=== PATIENT | male | born 1975 | race African-American/Black ===

== ENCOUNTER 2016-06-02 13:09 | Inpatient (IN) | payer OTHER ==
[2016-06-02 21:43] VITALS: BMI 19.1
--- NOTE | 2016-06-02 22:04 | HP ---
CIWA Score - CIWA Score Nausea/Vomitin-Mild Nausea/No Vomiting Muscle Tremors: 3 Anxiety: 3 Agitation: 4-Moderately Restless Paroxysmal Sweats: 1-Minimal Palms Moist Orientation: 3-Disoriented Date>2 days Tacttile Disturbances: 0-None Auditory Disturbances: 0-None Visual Disturbances: 0-None Headache: 0-None Present CIWA-Ar Total Score: 15 Admission ROS S - HPI Chief Complaint: WITHDRAWAL SX Allergies/Adverse Reactions: Allergies Allergy/AdvReac Type Severity Reaction Status Date / Time phenytoin sodium Allergy Intermediate Rash Verified 11/16/15 22:37 [From Dilantin] phenytoin sodium extended Allergy Intermediate Rash Verified 11/16/15 22:37 [From Dilantin] History of Present Illness: 40 YEARS OLD MALE WITH LONG HISTORY OF ALCOHOL NICOTINE DEPENDENCE HAS SEIZURE AND DEPRESSION IS ADMITTED TO DETOX Exam Limitations: No Limitations - Ebola screening Have you traveled outside of the country in the last 21 days: No Have you had contact with anyone from an Ebola affected area: No Have you been sick,other than usual withdrawal symptoms: No Do you have a fever: No - Review of Systems Constitutional: Chills, Loss of Appetite, Changes in sleep, Unintentional Wgt. Loss, Unexplained wgt Loss EENT: reports: No Symptoms Reported Respiratory: reports: No Symptoms reported Cardiac: reports: No Symptoms Reported GI: reports: Nausea, Poor Appetite, Poor Fluid Intake, Abdominal cramping : reports: No Symptoms Reported Musculoskeletal: reports: Joint Pain (LEFT SHOULDER) Integumentary: reports: No Symptoms Reported Neuro: reports: Seizure (2016), Tremors Endocrine: reports: No Symptoms Reported Hematology: reports: No Symptoms Reported Psychiatric: reports: Judgement Intact, Depressed Other Systems: Reviewed and Negative Patient History - Patient Medical History Hx Anemia: No Hx Asthma: No Hx Chronic Obstructive Pulmonary Disease (COPD): No Hx Cancer: No Hx Cardiac Disorders: No Hx Congestive Heart Failure: No Hx Hypertension: No Hx Hypercholesterolemia: No Hx Pacemaker: No HX Cerebrovascular Accident: No (craniotomy and secondary neuropathy that resolved on the left side) Hx Seizures: Yes (10/2015) Hx Dementia: No Hx Diabetes: No Hx Gastrointestinal Disorders: No Hx Liver Disease: No Hx Genitourinary Disorders: No Hx Sexually Transmitted Disorders: No Hx Renal Disease (ESRD): No Hx Thyroid Disease: No Hx Human Immunodeficiency Virus (HIV): No (NEGATIVE HX LAST 08/31) Hx Hepatitis C: No Hx Depression: Yes Hx Suicide Attempt: No Hx Bipolar Disorder: No Hx Schizophrenia: No - Patient Surgical History Past Surgical History: Yes Hx Neurologic Surgery: Yes (Brain injury sx in 2005 head trauma from aneurism) Hx Cataract Extraction: No Hx Cardiac Surgery: No Hx Lung Surgery: No Hx Breast Surgery: No Hx Breast Biopsy: No Hx Abdominal Surgery: No Hx Appendectomy: No Hx Cholecystectomy: No Hx Genitourinary Surgery: No Hx Orthopedic Surgery: No Anesthesia Reaction: No - PPD History Previous Implant?: Yes Documented Results: Positive w/o proof Implanted On Prior [facility] Admission?: Yes Date: 02/07/15 Results: CXR(-)02/08/15 PPD to be Administered?: No - Smoking Cessation Smoking history: Current every day smoker Have you smoked in the past 12 months: Yes Aproximately how many cigarettes per day: 20 Cigars Per Day: 0 Hx Chewing Tobacco Use: No Initiated information on smoking cessation: Yes 'Breaking Loose' booklet given: 06/02/16 - Substance & Tx. History Hx Alcohol Use: Yes Hx Substance Use: Yes Substance Use Type: Alcohol, Marijuana Hx Substance Use Treatment: Yes - Substances Abused Alcohol Route: Oral Frequency: Daily Amount used: 2 OF 6 PACK BEER Age of first use: 17 Date of Last Use: 06/02/16 Family Disease History - Family Disease History Family Disease History: Other: Father (UNKNOWN), Brother (ONLY CHILD) Admission Physical Exam BHS - Vital Signs Vital Signs: Vital Signs - 24 hr 06/02/16 21:39 Temperature 90.6 F L Pulse Rate 99 H Respiratory 18 Rate Blood Pressure 120/85 - Physical General Appearance: Yes: Appropriately Dressed, Mild Distress, Alcohol on Breath , Thin, Tremorous, Irritable, Sweating, Anxious HEENTM: Yes: Hearing grossly Normal, Normal ENT Inspection, Normal Voice, Other (2006 CRANIOTOMY) Respiratory: Yes: Chest Non-Tender, Lungs Clear, Normal Breath Sounds, No Respiratory Distress, No Accessory Muscle Use Neck: Yes: Supple, Trachea in good position Breast: Yes: Breasts Symetrical Cardiology: Yes: Regular Rhythm, S1, S2, Tachycardia Abdominal: Yes: Non Tender, Soft Genitourinary: Yes: Within Normal Limits Back: Yes: Normal Inspection Musculoskeletal: Yes: full range of Motion, Gait Steady, Muscle Pain (LEFT SHOULDER) Extremities: Yes: Normal Range of Motion, Non-Tender, Tremors Neurological: Yes: Alert, Motor Strength 5/5, Normal Response, Depressed Affect Integumentary: Yes: Warm Lymphatic: Yes: Within Normal Limits - Diagnostic (1) Alcohol dependence with uncomplicated withdrawal Current Visit: Yes Status: Chronic (2) Cannabis dependence, uncomplicated Current Visit: Yes Status: Chronic (3) Major depressive disorder, recurrent, moderate Current Visit: Yes Status: Suspected (4) Nicotine dependence Current Visit: Yes Status: Chronic Qualifiers: Nicotine product type: cigarettes Substance use status: in withdrawal Qualified Code(s): F17.213 - Nicotine dependence, cigarettes, with withdrawal (5) Seizure disorder Current Visit: Yes Status: Chronic Comment: 2006 DUE TO HEAD TRAUMA (6) Weight loss Current Visit: Yes Status: Acute Cleared for Admission [facility] - Detox or Rehab [facility] Level of Care: Medically Managed Detox Regimen/Protocol: Librium [facility] Breath Alcohol Content Breath Alcohol Content: 0.211 Urine Drug Screen - Results Drug Screen Negative: No Urine Drug Screen Results: THC-Marijuana
[2016-06-02] MEDS ORDERED: ACETAMINOPHEN 325 MG TABLET (FP) PO PRN (22:12)
[2016-06-02] MEDS ORDERED: IBUPROFEN 400 MG TABLET (FP) PO PRN (22:12)
[2016-06-02] MEDS ORDERED: MAG HYDROX/AL HYDROX/SIMETH 30 ML UNIT-DOSE CUP PO PRN (22:12)
[2016-06-02] MEDS ORDERED: guaiFENesin/D-METHORPHAN HB 10 ML UNIT-DOSE CUPS PO PRN (22:12)
[2016-06-02] MEDS ORDERED: chlordiazePOXIDE HCL 25 MG CAPSULE PO PRN (22:12)
[2016-06-02] MEDS ORDERED: NICOTINE POLACRILEX 4 MG GUM BC PRN (22:12)
[2016-06-02] MEDS ORDERED: MENTHOL/PHENOL 1 EACH UD MM PRN (22:12)
[2016-06-02] MEDS ORDERED: MAGNESIUM HYDROX 2400MG/30ML ORAL SUSPENSION 30 ML CUP PO PRN (22:12)
[2016-06-02] MEDS ORDERED: P-EPHED 60MG/TRIPROLIDI 2.5MG TABLET PO PRN (22:12)
[2016-06-02] MEDS ORDERED: diphenhydrAMINE HCL 50 MG CAPSULE PO PRN (22:12)
[2016-06-02] MEDS ORDERED: NICOTINE 21 MG/24 HOURS TOPICAL PATCH TD PRN (22:12)
[2016-06-02] MEDS ORDERED: LOPERAMIDE HCL 2 MG CAPSULE PO PRN (22:12)
[2016-06-02] MEDS ORDERED: MAGNESIUM CITRATE 300 ML BOTTLE PO PRN (22:12)
[2016-06-02] MEDS ORDERED: hydrOXYzine PAMOATE 50 MG CAPSULE (FP) PO PRN (22:12)
[2016-06-03] MEDS: chlordiazePOXIDE HCL 25 MG CAPSULE PO SCH ×3 (01:06→10:09)
[2016-06-03] MEDS: levETIRAcetam 500 MG TABLET (FP) PO SCH ×2 (01:10→10:09)
[2016-06-03 03:01] LABS: URINE APPEARANCE CLEAR; URINE BILIRUBIN NEGATIVE (NEGATIVE); URINE COLOR COLORLESS; URINE GLUCOSE (UA) NEGATIVE (NEGATIVE); URINE KETONE NEGATIVE (NEGATIVE); URINE LEUK ESTERASE NEGATIVE (NEGATIVE); URINE NITRITE NEGATIVE (NEGATIVE); URINE PROTEIN NEGATIVE (NEGATIVE); URINE UROBILINOGEN NEGATIVE E.U./dl (0.2-1.0)
[2016-06-03 03:08] LABS: URINE BLOOD 1+ (NEGATIVE)
[2016-06-03 09:53] LABS: MCH 34.6 pg (25.7-33.7); MCHC 34.3 g/dl (32.0-35.9); MEAN CELL VOLUME 100.8 fl (80-96); MEAN PLT VOLUME 7.7 fl (7.5-11.1); PLATELET COUNT 207 K/MM3 (134-434); RDW 13.3 % (11.9-15.9); WHITE BLOOD COUNT 4.9 K/mm3 (4.0-10.0)
[2016-06-03] MEDS ORDERED: PRENATAL VITAMINS W/ FOLIC ACID TABLET (FP) PO SCH (10:00)
[2016-06-03 10:06] LABS: ALBUMIN 3.7 g/dl (3.4-5.0); ALK PHOS 36 U/L (45-117); ANION GAP 7 (8-16); BILIRUBIN,TOTAL 0.9 mg/dL (0.2-1.0); CALCIUM 8.2 mg/dL (8.5-10.1); CO2 30 mmol/L (21-32); COCKROFT - GAULT 100.67; CREATININE 0.9 mg/dL (0.7-1.3); GLUCOSE,RANDOM 85 mg/dL (74-106); SGOT/AST 27 U/L (15-37); SGPT/ALT 25 U/L (12-78); TOT PROT 6.7 g/dl (6.4-8.2)
--- NOTE | 2016-06-03 10:36 | CONSULT ---
[facility] Psychiatric Consult - Data Date of interview: 06/03/16 Admission source: [facility] Identifying data: Readmission to [facility] for this 40 y/o AA male seeking detox treatment for alcohol,and cannabis dependence.Patient is single,without children,unemployed/disabled and supported on SSI benefits. Substance Abuse History: - Smoking Cessation. Smoking history: Current every day smoker. Have you smoked in the past 12 months: Yes. Aproximately how many cigarettes per day: 20. Cigars Per Day: 0. Hx Chewing Tobacco Use: No. Initiated information on smoking cessation: Yes. 'Breaking Loose' booklet given : 06/02/16. - Substance & Tx. History. Hx Alcohol Use: Yes. Hx Substance Use : Yes. Substance Use Type: Alcohol, Marijuana. Hx Substance Use Treatment: Yes. - Substances Abused. Alcohol. Route: Oral. Frequency: Daily. Amount used: 2 OF 6 PACK BEER. Age of first use: 17. Date of Last Use: . Confirmed by patient. Medical History: Seizure disorder (post-traumatic),neurosurgery in 2005 for brain aneurysm (craniotomy) and residual neuropathy. Psychiatric History: Psychiatric hospitalization at [facility] three years ago.Exact diagnosis not recalled by patient.Past [facility] records indicate MDD and a recent admission to [facility].Mr Deluna denies being on psychotropic medications at this time.No reported contact with psychiatric [facility]PD care providers.Patient denies history of suicide attempts. Physical/Sexual Abuse/Trauma History: No history. Additional Comment: Urine Drug Screen Results: THC-Marijuana.Noted. Mental Status Exam - Mental Status Exam Alert and Oriented to: Time, Place, Person Cognitive Function: Good Patient Appearance: Well Groomed (gross deformation of left side of skull) Mood: Hopeful (calm) Affect: Appropriate, Euthymic Patient Behavior: Fatigued, Appropriate, Cooperative Speech Pattern: Clear Voice Loudness: Normal Thought Process: Goal Oriented Thought Disorder: Not Present Hallucinations: Denies Suicidal Ideation: Denies Homicidal Ideation: Denies Insight/Judgement: Poor Sleep: Well Appetite: Good Muscle strength/Tone: Normal Gait/Station: Normal Psychiatric Findings - Problem List ([place] 1, 2,3) (1) Alcohol dependence with uncomplicated withdrawal Current Visit: Yes Status: Acute (2) Cannabis dependence, uncomplicated Current Visit: Yes Status: Acute (3) Nicotine dependence Current Visit: Yes Status: Acute Qualifiers: Nicotine product type: cigarettes Substance use status: in withdrawal Qualified Code(s): F17.213 - Nicotine dependence, cigarettes, with withdrawal (4) Drug-induced mood disorder Current Visit: Yes Status: Acute (5) Seizure disorder Current Visit: Yes Status: Chronic Comment: 2006 DUE TO HEAD TRAUMA - Initial Treatment Plan Initial Treatment Plan: Psychoeducation.Detoxification.Observation.Seizures precautions.
--- NOTE | 2016-06-03 11:01 | PN ---
S CIWA - CIWA Score Nausea/Vomitin Muscle Tremors: 2 Anxiety: 2 Agitation: 1-Slight > Activity Paroxysmal Sweats: 2 Orientation: 0-Oriented Tacttile Disturbances: 1-Very Mild Itch/Numbness Auditory Disturbances: 0-None Visual Disturbances: 0-None Headache: 0-None Present CIWA-Ar Total Score: 10 BHS Progress Note (SOAP) Subjective: feeling better, interrupted sleep, Objective: 06/03/16 11:00 Vital Signs Temperature 98.1 F 06/03/16 06:18 Pulse Rate 91 H 06/03/16 10:00 Respiratory Rate 18 06/03/16 10:00 Blood Pressure 123/81 06/03/16 10:00 O2 Sat by Pulse Oximetry (%) Laboratory Tests 06/02/16 06/03/16 06/03/16 23:12 07:00 07:00 WBC 4.9 RBC 3.93 L Hgb 13.6 Hct 39.6 MCV 100.8 H MCHC 34.3 RDW 13.3 Plt Count 207 D MPV 7.7 Sodium 144 Potassium 4.1 Chloride 107 Carbon Dioxide 30 Anion Gap 7 L BUN 8 Creatinine 0.9 Creat Clearance w eGFR > 60 Random Glucose 85 Calcium 8.2 L Total Bilirubin 0.9 D AST 27 ALT 25 Alkaline Phosphatase 36 L D Total Protein 6.7 Albumin 3.7 Urine Color Colorless Urine Appearance Clear Urine pH 6.0 Ur Specific [place] 1.002 Urine Protein Negative Urine Glucose (UA) Negative Urine Ketones Negative Urine Blood 1+ H Urine Nitrite Negative Urine Bilirubin Negative Urine Urobilinogen Negative Ur Leukocyte Esterase Negative 06/03/16 11:12 pt aox3 lying in bed in nad 06/03/16 16:01 06/03/16 16:02 Assessment: 06/03/16 11:00 withdrawal sx's 06/03/16 16:01 Plan: cont. detox increase fluids
--- NOTE | 2016-06-03 13:08 | EKG ---
Test Reason : Blood Pressure : / mmHG Vent. Rate : 091 BPM Atrial Rate : 091 BPM P-R Int : 148 ms QRS Dur : 096 ms QT Int : 336 ms P-R-T Axes : 080 029 057 degrees QTc Int : 413 ms NORMAL SINUS RHYTHM NORMAL ECG NO PREVIOUS ECGS AVAILABLE Confirmed by LARISSA MILLER, BRODY ([id number]) on 06/03/2016 1:08:08 PM Referred By: Confirmed By:BRODY DIAS MD
[2016-06-03 14:01] VITALS: BP 125/76; PULSE 90; TEMP 97.3
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
[2016-06-03] MEDS ORDERED: THIAMINE HCL 100 MG TABLET (FP) PO SCH (22:00)
[2016-06-03] MEDS ORDERED: chlordiazePOXIDE HCL 25 MG CAPSULE PO SCH (23:00)
[2016-06-04] MEDS ORDERED: chlordiazePOXIDE 5 MG CAPSULE PO SCH (23:00)
[2016-06-05] MEDS ORDERED: chlordiazePOXIDE HCL 10 MG CAPSULE PO SCH (23:00)
== END 2016-06-03 18:00 | disposition left against medical advice (07) | DRG 770 ==
LOC: YASAS 13:09 → Y6N 22:49
PROVIDERS: ADMIT Internal Medicine Addiction Medicine; ATTEND Internal Medicine Addiction Medicine
PROC: HZ2ZZZZ Detoxification Services for Substance Abuse Treatment (ICD-10-PCS; principal; 2016-06-02)
DX: F10.230 Alcohol dependence with withdrawal, uncomplicated (principal); F12.20 Cannabis dependence, uncomplicated; F17.210 Nicotine dependence, cigarettes, uncomplicated; F33.1 Major depressive disorder, recurrent, moderate; F19.24 Other psychoactive substance dependence with psychoactive substance-induced mood disorder; G40.909 Epilepsy, unspecified, not intractable, without status epilepticus; R00.0 Tachycardia, unspecified; Z87.898 Personal history of other specified conditions
CPT/HCPCS: 36415; 71020-TC; 80053; 81003; 81015; 85027; 86593; 93005; 93010

== ENCOUNTER 2016-07-22 12:09 | Inpatient (IN) | payer OTHER ==
[2016-07-22 16:30] VITALS: BMI 19.0
--- NOTE | 2016-07-22 17:27 | HP ---
CIWA Score - CIWA Score Nausea/Vomitin-Mild Nausea/No Vomiting Muscle Tremors: 4-Moderate,w/Arms Extend Anxiety: 4-Mod. Anxious/Guarded Agitation: 4-Moderately Restless Paroxysmal Sweats: 1-Minimal Palms Moist Orientation: 0-Oriented Tacttile Disturbances: 0-None Auditory Disturbances: 0-None Visual Disturbances: 0-None Headache: 0-None Present CIWA-Ar Total Score: 14 Admission ROS S - HPI Chief Complaint: WITHDRAWAL SX Allergies/Adverse Reactions: Allergies Allergy/AdvReac Type Severity Reaction Status Date / Time phenytoin sodium Allergy Intermediate Rash Verified 11/16/15 22:37 [From Dilantin] phenytoin sodium extended Allergy Intermediate Rash Verified 11/16/15 22:37 [From Dilantin] History of Present Illness: 40 YEARS OLD MALE WITH LONG HISTORY OF ALCOHOL NICOTINE DEPENDENCE HAS POSITIVE PPD, SEIZURE DENIES MENTAL ILLNESS IS ADMITTED TO DETOX Exam Limitations: No Limitations - Ebola screening Have you traveled outside of the country in the last 21 days: No Have you had contact with anyone from an Ebola affected area: No Have you been sick,other than usual withdrawal symptoms: No Do you have a fever: No - Review of Systems Constitutional: Chills, Loss of Appetite, Changes in sleep, Unintentional Wgt. Loss, Unexplained wgt Loss EENT: reports: No Symptoms Reported Respiratory: reports: No Symptoms reported Cardiac: reports: No Symptoms Reported GI: reports: Nausea, Poor Appetite, Poor Fluid Intake, Abdominal cramping : reports: No Symptoms Reported Musculoskeletal: reports: No Symptoms Reported Integumentary: reports: No Symptoms Reported Neuro: reports: Seizure (2006 HEAD TRAUMA), Tremors Endocrine: reports: No Symptoms Reported Hematology: reports: No Symptoms Reported Psychiatric: reports: Judgement Intact, Orientated x3, Depressed Other Systems: Reviewed and Negative Patient History - Patient Medical History Hx Anemia: No Hx Asthma: No Hx Chronic Obstructive Pulmonary Disease (COPD): No Hx Cancer: No Hx Cardiac Disorders: No Hx Congestive Heart Failure: No Hx Hypertension: No Hx Hypercholesterolemia: No Hx Pacemaker: No HX Cerebrovascular Accident: No (craniotomy and secondary neuropathy that resolved on the left side) Hx Seizures: Yes (10/2015) Hx Dementia: No Hx Diabetes: No Hx Gastrointestinal Disorders: No Hx Liver Disease: No Hx Genitourinary Disorders: No Hx Sexually Transmitted Disorders: No Hx Renal Disease (ESRD): No Hx Thyroid Disease: No Hx Human Immunodeficiency Virus (HIV): No (NEGATIVE HX LAST 08/31) Hx Hepatitis C: No Hx Depression: Yes Hx Suicide Attempt: No Hx Bipolar Disorder: No Hx Schizophrenia: No - Patient Surgical History Past Surgical History: Yes Hx Neurologic Surgery: Yes (Brain 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) Hx Cataract Extraction: No Hx Cardiac Surgery: No Hx Lung Surgery: No Hx Breast Surgery: No Hx Breast Biopsy: No Hx Abdominal Surgery: No Hx Appendectomy: No Hx Cholecystectomy: No Hx Genitourinary Surgery: No Hx Orthopedic Surgery: No Anesthesia Reaction: No - PPD History Previous Implant?: Yes Documented Results: Positive w/o proof Implanted On Prior R Admission?: No Date: 02/07/15 Results: CXR(-)02/08/15 PPD to be Administered?: No - Smoking Cessation Smoking history: Current every day smoker Have you smoked in the past 12 months: Yes Aproximately how many cigarettes per day: 20 Cigars Per Day: 0 Hx Chewing Tobacco Use: No Initiated information on smoking cessation: Yes 'Breaking Loose' booklet given: 07/22/16 - Substance & Tx. History Hx Alcohol Use: Yes Hx Substance Use: Yes Substance Use Type: Alcohol, Marijuana Hx Substance Use Treatment: Yes - Substances Abused Alcohol Route: Oral Frequency: Daily Amount used: 40OZX5 BEER Age of first use: 17 Date of Last Use: 07/22/16 Family Disease History - Family Disease History Family Disease History: Diabetes: Mother, Other: Father (NO CONTACT) Other Family History: ONLY CHILD Admission Physical Exam S - Vital Signs Vital Signs: Vital Signs - 24 hr 07/22/16 16:28 Temperature 98 F Pulse Rate 91 H Respiratory 20 Rate Blood Pressure 106/71 - Physical General Appearance: Yes: Appropriately Dressed, Mild Distress, Alcohol on Breath , Tremorous, Irritable, Sweating, Anxious HEENTM: Yes: Hearing grossly Normal, Normal ENT Inspection, Normocephalic, Normal Voice Respiratory: Yes: Chest Non-Tender, Lungs Clear, Normal Breath Sounds, No Respiratory Distress, No Accessory Muscle Use Neck: Yes: Supple, Trachea in good position Breast: Yes: Breasts Symetrical Cardiology: Yes: Regular Rhythm, S1, S2, Tachycardia Abdominal: Yes: Non Tender, Soft Genitourinary: Yes: Within Normal Limits Back: Yes: Normal Inspection Musculoskeletal: Yes: full range of Motion, Gait Steady Extremities: Yes: Normal Inspection, Normal Range of Motion, Non-Tender, Tremors Neurological: Yes: Fully Oriented, Alert, Motor Strength 5/5, Normal Response, Depressed Affect Integumentary: Yes: Warm Lymphatic: Yes: Within Normal Limits - Diagnostic (1) Weight loss Current Visit: Yes Status: Acute (2) Alcohol dependence with uncomplicated withdrawal Current Visit: Yes Status: Acute (3) Nicotine dependence Current Visit: Yes Status: Acute Qualifiers: Nicotine product type: cigarettes Substance use status: in withdrawal Qualified Code(s): F17.213 - Nicotine dependence, cigarettes, with withdrawal (4) Seizure disorder Current Visit: Yes Status: Chronic Comment: 2006 DUE TO HEAD TRAUMA KEPPRA 1500 MG BID LAST EPISODE 07/07/16 (5) Positive PPD, treated Current Visit: Yes Status: Resolved (6) Depression (emotion) Current Visit: Yes Status: Suspected Qualifiers: Depression Type: dysthymia Qualified Code(s): F34.1 - Dysthymic disorder Cleared for Admission [facility] - Detox or Rehab [facility] Level of Care: Medically Managed Detox Regimen/Protocol: Librium [facility] Breath Alcohol Content Breath Alcohol Content: 0.242 Urine Drug Screen - Results Drug Screen Negative: No Urine Drug Screen Results: THC-Marijuana
[2016-07-22] MEDS ORDERED: ACETAMINOPHEN 325 MG TABLET (FP) PO PRN (17:34)
[2016-07-22] MEDS ORDERED: NICOTINE POLACRILEX 4 MG GUM BC PRN (17:34)
[2016-07-22] MEDS ORDERED: diphenhydrAMINE HCL 50 MG CAPSULE PO PRN (17:34)
[2016-07-22] MEDS ORDERED: MENTHOL/PHENOL 1 EACH UD MM PRN (17:34)
[2016-07-22] MEDS ORDERED: MAGNESIUM CITRATE 300 ML BOTTLE PO PRN (17:34)
[2016-07-22] MEDS ORDERED: chlordiazePOXIDE HCL 25 MG CAPSULE PO PRN (17:34)
[2016-07-22] MEDS ORDERED: guaiFENesin/D-METHORPHAN HB 10 ML UNIT-DOSE CUPS PO PRN (17:34)
[2016-07-22] MEDS ORDERED: LOPERAMIDE HCL 2 MG CAPSULE PO PRN (17:34)
[2016-07-22] MEDS ORDERED: hydrOXYzine PAMOATE 50 MG CAPSULE (FP) PO PRN (17:34)
[2016-07-22] MEDS ORDERED: MAGNESIUM HYDROX 2400MG/30ML ORAL SUSPENSION 30 ML CUP PO PRN (17:34)
[2016-07-22] MEDS ORDERED: P-EPHED 60MG/TRIPROLIDI 2.5MG TABLET PO PRN (17:34)
[2016-07-22] MEDS ORDERED: IBUPROFEN 400 MG TABLET (FP) PO PRN (17:34)
[2016-07-22] MEDS ORDERED: MAG HYDROX/AL HYDROX/SIMETH 30 ML UNIT-DOSE CUP PO PRN (17:34)
[2016-07-22] MEDS: THIAMINE HCL 100 MG TABLET (FP) PO SCH (22:06)
[2016-07-22] MEDS: levETIRAcetam 500 MG TABLET (FP) PO SCH (22:06)
[2016-07-22] MEDS: chlordiazePOXIDE HCL 25 MG CAPSULE PO SCH (22:06)
[2016-07-23 00:18] LABS: URINE APPEARANCE CLEAR; URINE BILIRUBIN NEGATIVE (NEGATIVE); URINE COLOR COLORLESS; URINE GLUCOSE (UA) NEGATIVE (NEGATIVE); URINE KETONE NEGATIVE (NEGATIVE); URINE LEUK ESTERASE NEGATIVE (NEGATIVE); URINE NITRITE NEGATIVE (NEGATIVE); URINE PROTEIN NEGATIVE (NEGATIVE); URINE UROBILINOGEN NEGATIVE E.U./dl (0.2-1.0)
[2016-07-23 00:22] LABS: URINE BLOOD 1+ (NEGATIVE)
[2016-07-23 00:25] LABS: URINE RBC <1 /hpf (0-3)
[2016-07-23] MEDS: chlordiazePOXIDE HCL 25 MG CAPSULE PO SCH ×4 (06:27→22:15)
--- NOTE | 2016-07-23 07:14 | CONSULT ---
[facility] Psychiatric Consult - Data Date of interview: 07/23/16 Admission source: [facility] Identifying data: This is 40 years old male [facility] hospitalization history intoxicated with: Alcohol, Nicotine amd Cannabis Substance Abuse History: - Smoking Cessation. Smoking history: Current every day smoker. Have you smoked in the past 12 months: Yes. Aproximately how many cigarettes per day: 20. Cigars Per Day: 0. Hx Chewing Tobacco Use: No. Initiated information on smoking cessation: Yes. 'Breaking Loose' booklet given : 07/22/16. - Substance & Tx. History. Hx Alcohol Use: Yes. Hx Substance Use : Yes. Substance Use Type: Alcohol, Marijuana. Hx Substance Use Treatment: Yes. - Substances Abused. Alcohol. Route: Oral. Frequency: Daily. Amount used: 40OZX5 BEER. Age of first use: 17. Date of Last Use: 07/22/16 Medical History: Weight loss, Seizure history. PPD+ history Psychiatric History: Patient reports history of MDD, REPORTS NO HISOTRY OF PSYCHIATRIC ADMISSIONS, NO MEDICATIONS USAGE PRIOR TO ADSMISSION ASA WELL Physical/Sexual Abuse/Trauma History: Denies Additional Comment: Observation. Detox Unit Care Protocol Mental Status Exam - Mental Status Exam Alert and Oriented to: Time Cognitive Function: Impaired Patient Appearance: Well Groomed Mood: Sad Affect: Flat Patient Behavior: Sedated Speech Pattern: Delayed Voice Loudness: Mildly Soft/Quiet Thought Process: Circumstantial Thought Disorder: Being Controlled Hallucinations: Denies Suicidal Ideation: Denies Homicidal Ideation: Denies Insight/Judgement: Fair Sleep: Difficulty falling asleep Appetite: Weight loss Muscle strength/Tone: Mild Hypotonicity Gait/Station: Normal Additional Comments: Observation. Detox Unit Care Protocol Psychiatric Findings - Problem List ([place] 1, 2,3) (1) Alcohol dependence with uncomplicated withdrawal Current Visit: Yes Status: Acute (2) Nicotine dependence Current Visit: Yes Status: Acute Qualifiers: Nicotine product type: cigarettes Substance use status: in withdrawal Qualified Code(s): F17.213 - Nicotine dependence, cigarettes, with withdrawal (3) Weight loss Current Visit: Yes Status: Acute (4) Depression (emotion) Current Visit: Yes Status: Suspected Qualifiers: Depression Type: dysthymia Qualified Code(s): F34.1 - Dysthymic disorder (5) Drug-induced mood disorder Current Visit: No Status: Acute (6) Cannabis dependence, uncomplicated Current Visit: No Status: Chronic (7) Major depressive disorder, recurrent, moderate Current Visit: No Status: Suspected - Initial Treatment Plan Initial Treatment Plan: Observation. Detox Unit Care Protocol
--- NOTE | 2016-07-23 09:32 | PN ---
S CIWA - CIWA Score Nausea/Vomitin-No Nausea/No Vomiting Muscle Tremors: 4-Moderate,w/Arms Extend Anxiety: 2 Agitation: 4-Moderately Restless Paroxysmal Sweats: 3 Orientation: 0-Oriented Tacttile Disturbances: 0-None Auditory Disturbances: 0-None Visual Disturbances: 0-None Headache: 0-None Present CIWA-Ar Total Score: 13 BHS Progress Note (SOAP) Subjective: sweats tired interrupted sleep anxiety Objective: 07/23/16 09:27 Vital Signs Temperature 97.9 F 07/23/16 06:00 Pulse Rate 62 07/23/16 06:00 Respiratory Rate 18 07/23/16 06:00 Blood Pressure 129/72 07/23/16 06:00 O2 Sat by Pulse Oximetry (%) Laboratory Tests 07/22/16 23:17 Urine Color Colorless Urine Appearance Clear Urine pH 6.0 Urine Protein Negative Urine Glucose (UA) Negative Urine Ketones Negative Urine Blood 1+ H Urine Nitrite Negative Urine Bilirubin Negative Urine Urobilinogen Negative Ur Leukocyte Esterase Negative Urine RBC <1 Urine WBC None labs pending awake/alert ambulating no acute distress Assessment: 07/23/16 09:27 withdrawal sx Plan: continue detox increase fluids
[2016-07-23] MEDS: PRENATAL VITAMINS W/ FOLIC ACID TABLET (FP) PO SCH (10:05)
[2016-07-23] MEDS: levETIRAcetam 500 MG TABLET (FP) PO SCH ×2 (10:05→22:15)
[2016-07-23] MEDS: NICOTINE 21 MG/24 HOURS TOPICAL PATCH TD SCH (10:06)
[2016-07-23 10:47] LABS: ALBUMIN 4.5 g/dl (3.4-5.0); ALK PHOS 45 U/L (45-117); ANION GAP 10 (8-16); BILIRUBIN,TOTAL 0.9 mg/dL (0.2-1.0); CALCIUM 9.6 mg/dL (8.5-10.1); CO2 29 mmol/L (21-32); COCKROFT - GAULT 99.95; CREATININE 0.9 mg/dL (0.7-1.3); GLUCOSE,RANDOM 85 mg/dL (74-106); SGOT/AST 35 U/L (15-37); SGPT/ALT 32 U/L (12-78); TOT PROT 7.8 g/dl (6.4-8.2)
--- NOTE | 2016-07-23 11:43 | EKG ---
Test Reason : Blood Pressure : / mmHG Vent. Rate : 070 BPM Atrial Rate : 070 BPM P-R Int : 132 ms QRS Dur : 096 ms QT Int : 362 ms P-R-T Axes : -01 034 056 degrees QTc Int : 390 ms NORMAL SINUS RHYTHM NORMAL ECG WHEN COMPARED WITH ECG OF 02-JUN-2016 23:58, NO SIGNIFICANT CHANGE WAS FOUND Confirmed by ADONAY MINER MD ([id number]) on 07/23/2016 11:43:04 AM Referred By: Confirmed By:ADONAY MINER MD
[2016-07-23] MEDS: THIAMINE HCL 100 MG TABLET (FP) PO SCH (22:15)
[2016-07-24] MEDS: chlordiazePOXIDE HCL 25 MG CAPSULE PO SCH ×2 (05:22→10:08)
[2016-07-24 09:43] VITALS: BP 131/66; PULSE 68; TEMP 97
--- NOTE | 2016-07-24 09:59 | PN ---
[facility] CIWA - CIWA Score Nausea/Vomitin-No Nausea/No Vomiting Muscle Tremors: 3 Anxiety: 2 Agitation: 3 Paroxysmal Sweats: 2 Orientation: 0-Oriented Tacttile Disturbances: 0-None Auditory Disturbances: 0-None Visual Disturbances: 0-None Headache: 0-None Present CIWA-Ar Total Score: 10 S Progress Note (SOAP) Subjective: sweats anxiety little shakes Objective: 07/24/16 09:58 Vital Signs Temperature 97 F L 07/24/16 09:42 Pulse Rate 68 07/24/16 09:42 Respiratory Rate 18 07/24/16 09:42 Blood Pressure 131/66 07/24/16 09:42 O2 Sat by Pulse Oximetry (%) Laboratory Tests 07/22/16 07/23/16 07/23/16 23:17 06:00 06:00 WBC 5.7 RBC 4.15 Hgb 14.4 Hct 42.7 MCV 102.9 H MCHC 33.7 RDW 13.8 Plt Count 286 D MPV 8.3 Sodium 144 Potassium 4.5 Chloride 105 Carbon Dioxide 29 Anion Gap 10 BUN 9 Creatinine 0.9 Creat Clearance w eGFR > 60 Random Glucose 85 Calcium 9.6 Total Bilirubin 0.9 AST 35 D ALT 32 D Alkaline Phosphatase 45 D Total Protein 7.8 Albumin 4.5 D Urine Color Colorless Urine Appearance Clear Urine pH 6.0 Ur Specific [place] <= 1.005 Urine Protein Negative Urine Glucose (UA) Negative Urine Ketones Negative Urine Blood 1+ H Urine Nitrite Negative Urine Bilirubin Negative Urine Urobilinogen Negative Ur Leukocyte Esterase Negative Urine RBC <1 Urine WBC None RPR Titer 07/23/16 06:00 WBC RBC Hgb Hct MCV MCHC RDW Plt Count MPV Sodium Potassium Chloride Carbon Dioxide Anion Gap BUN Creatinine Creat Clearance w eGFR Random Glucose Calcium Total Bilirubin AST ALT Alkaline Phosphatase Total Protein Albumin Urine Color Urine Appearance Urine pH Ur Specific [place] Urine Protein Urine Glucose (UA) Urine Ketones Urine Blood Urine Nitrite Urine Bilirubin Urine Urobilinogen Ur Leukocyte Esterase Urine RBC Urine WBC RPR Titer Nonreactive awake/alert ambulating no acute distress Assessment: 07/24/16 09:59 withdrawal sx Plan: continue detox increase fluids
[2016-07-24] MEDS: NICOTINE 21 MG/24 HOURS TOPICAL PATCH TD SCH (10:08)
[2016-07-24] MEDS: PRENATAL VITAMINS W/ FOLIC ACID TABLET (FP) PO SCH (10:08)
[2016-07-24] MEDS: levETIRAcetam 500 MG TABLET (FP) PO SCH (10:08)
[2016-07-24] MEDS ORDERED: chlordiazePOXIDE 5 MG CAPSULE PO SCH (23:00)
--- NOTE | 2016-07-25 08:48 | DS ---
[facility] Detox Discharge Summary Admission Date: 07/22/16 Discharge Date: 07/24/16 - History Present History: Alcohol Dependence, Cannabis Dependence - Physical Exam Results Vital Signs: Vital Signs Temperature 97 F L 07/24/16 09:42 Pulse Rate 68 07/24/16 09:42 Respiratory Rate 18 07/24/16 09:42 Blood Pressure 131/66 07/24/16 09:42 O2 Sat by Pulse Oximetry (%) - Treatment Hospital Course: Responded well, Discharged Condition Good - Medication Discharge Medications: Ambulatory Orders Levetiracetam [Keppra -] 1,500 mg PO BID 08/21/15 - Diagnosis (1) Alcohol dependence with uncomplicated withdrawal Status: Chronic (2) Nicotine dependence Status: Chronic Qualifiers: Nicotine product type: cigarettes Substance use status: uncomplicated Qualified Code(s): F17.210 - Nicotine dependence, cigarettes, uncomplicated (3) Seizure disorder Status: Chronic (4) Positive PPD, treated Status: Resolved (5) Cannabis dependence, uncomplicated Status: Chronic (6) Abrasion of skin Status: Suspected - AMA Did Patient Leave Against Medical Advice: Yes (insisted on leaving "I need to go back to school")
[2016-07-25] MEDS ORDERED: chlordiazePOXIDE HCL 10 MG CAPSULE PO SCH (23:00)
== END 2016-07-24 10:53 | disposition left against medical advice (07) | DRG 770 ==
LOC: YASAS 12:09 → Y6N 18:52
PROVIDERS: ADMIT Internal Medicine; ATTEND Internal Medicine
PROC: HZ2ZZZZ Detoxification Services for Substance Abuse Treatment (ICD-10-PCS; principal; 2016-07-24)
DX: F10.230 Alcohol dependence with withdrawal, uncomplicated (principal); F12.20 Cannabis dependence, uncomplicated; F17.210 Nicotine dependence, cigarettes, uncomplicated; F33.3 Major depressive disorder, recurrent, severe with psychotic symptoms; F34.1 Dysthymic disorder; F19.24 Other psychoactive substance dependence with psychoactive substance-induced mood disorder; F33.9 Major depressive disorder, recurrent, unspecified; G40.909 Epilepsy, unspecified, not intractable, without status epilepticus; R63.4 Abnormal weight loss; R76.11 Nonspecific reaction to tuberculin skin test without active tuberculosis
CPT/HCPCS: 36415; 80053; 81003; 81015; 85027; 86593; 93005; 93010

== ENCOUNTER 2018-06-01 13:25 | Inpatient (IN) | payer OTHER ==
[2018-06-01 17:31] VITALS: BMI 18.0
--- NOTE | 2018-06-01 17:45 | HP ---
CIWA Score Nausea/Vomitin-Mild Nausea/No Vomiting Muscle Tremors: 2 Anxiety: 3 Agitation: 1-Slight > Activity Paroxysmal Sweats: 2 Orientation: 1-Uncertain about Date Tacttile Disturbances: 0-None Auditory Disturbances: 0-None Visual Disturbances: 0-None Headache: 2-Mild CIWA-Ar Total Score: 12 - Admission Criteria OASAS Guidelines: Admission for Medically Managed Detox: Requires at least one of the followin. CIWA greater than 12 2. Seizures within the past 24 hours 3. Delirium tremens within the past 24 hours 4. Hallucinations within the past 24 hours 5. Acute intervention needed for co occurring medical disorder 6. Acute intervention needed for co occurring psychiatric disorder 7. Severe withdrawal that cannot be handled at a lower level of care (continued vomiting, continued diarrhea, abnormal vital signs) requiring intravenous medication and/or fluids 8. Admission ROS S - [facility] Chief Complaint: Withdrawal symptoms Allergies/Adverse Reactions: Allergies Allergy/AdvReac Type Severity Reaction Status Date / Time phenytoin sodium Allergy Intermediate Rash Verified 06/01/18 17:21 [From Dilantin] phenytoin sodium extended Allergy Intermediate Rash Verified 06/01/18 17:21 [From Dilantin] History of Present Illness: 42 y.o. man with an extensive history of alcohol and marijuana dependence is here seeking detox services. Does not have a significant period of sobriety. Reports he last completed detox in 03/2018 at [facility]. Exam Limitations: No Limitations - Ebola screening Have you traveled outside of the country in the last 21 days: No (N) Have you had contact with anyone from an Ebola affected area: No Do you have a fever: No - Review of Systems Constitutional: Loss of Appetite, Unintentional Wgt. Loss EENT: reports: Tearing, Nose Congestion Respiratory: reports: Cough Cardiac: reports: No Symptoms Reported GI: reports: No Symptoms Reported : reports: No Symptoms Reported Musculoskeletal: reports: Joint Pain (Left shoulder) Integumentary: reports: No Symptoms Reported Neuro: reports: Seizure (Last seizure in 11/2017. ETOH induced.) Endocrine: reports: No Symptoms Reported Hematology: reports: No Symptoms Reported Psychiatric: reports: Depressed Other Systems: Reviewed and Negative Patient History - Patient Medical History Hx Anemia: No Hx Asthma: No (Denies ) Hx Chronic Obstructive Pulmonary Disease (COPD): No Hx Cancer: No Hx Cardiac Disorders: No Hx Congestive Heart Failure: No Hx Hypertension: No Hx Hypercholesterolemia: No Hx Pacemaker: No HX Cerebrovascular Accident: No (craniotomy and secondary neuropathy that resolved on the left side) Hx Seizures: Yes (11/2017-ETOH induced. Prescribed Keppra ) Hx Dementia: No Hx Diabetes: No Hx Gastrointestinal Disorders: No Hx Liver Disease: No Hx Genitourinary Disorders: No Hx Sexually Transmitted Disorders: No Hx Renal Disease (ESRD): No Hx Thyroid Disease: No Hx Human Immunodeficiency Virus (HIV): No (NEGATIVE HX LAST 08/31) Hx Hepatitis C: No Hx Depression: Yes Hx Suicide Attempt: No Hx Bipolar Disorder: No Hx Schizophrenia: No - Patient Surgical History Past Surgical History: Yes Hx Neurologic Surgery: Yes (Brain injury sx in 2005 head trauma from aneurism) Hx Cataract Extraction: No Hx Cardiac Surgery: No Hx Lung Surgery: No Hx Breast Surgery: No Hx Breast Biopsy: No Hx Abdominal Surgery: No Hx Appendectomy: No Hx Cholecystectomy: No Hx Genitourinary Surgery: No Hx Section: No Hx Orthopedic Surgery: No Anesthesia Reaction: No - PPD History Date: 02/07/15 Results: CXR(-)02/08/15 PPD to be Administered?: No - Reproductive History Patient is a Female of Child Bearing Age (11 -55 yrs old): No - Smoking Cessation Smoking history: Current every day smoker Have you smoked in the past 12 months: Yes Aproximately how many cigarettes per day: 20 Cigars Per Day: 0 Hx Chewing Tobacco Use: No Initiated information on smoking cessation: Yes 'Breaking Loose' booklet given: 06/01/18 - Substance & Tx. History Hx Alcohol Use: Yes Hx Substance Use: Yes Substance Use Type: Alcohol, Marijuana Hx Substance Use Treatment: Yes (Detox: 03/2018 at [facility] ) - Substances abused Alcohol Substance route: Oral Frequency: Daily Amount used: 15-20 BEERS Age of first use: 16 Date of last use: 06/01/18 Marijuana/Hashish Substance route: Smoking Frequency: Daily Amount used: 10 JOINTS Age of first use: 16 Date of last use: 05/31/18 Family Disease History - Family Disease History Family Disease History: Diabetes: Mother, Other: Father (NO CONTACT), Brother ( ONLY CHILD) Admission Physical Exam [facility] - Vital Signs Vital Signs: Vital Signs - 24 hr 06/01/18 17:23 Temperature 97.3 F L Pulse Rate 87 Respiratory 18 Rate Blood Pressure 125/90 - Physical General Appearance: Yes: Thin HEENTM: Yes: Hearing grossly Normal, Normocephalic, Normal Voice, Other ( Surgical scar to the left side of the head) Respiratory: Yes: Lungs Clear, Normal Breath Sounds, No Respiratory Distress, No Accessory Muscle Use Neck: Yes: No masses,lesions,Nodules Breast: Yes: Breast Exam Deferred Cardiology: Yes: Regular Rhythm, Regular Rate Abdominal: Yes: Normal Bowel Sounds, Non Tender, Flat Genitourinary: Yes: Within Normal Limits Back: Yes: Within Normal Limits, Normal Inspection Musculoskeletal: Yes: full range of Motion, Gait Steady, Pelvis Stable Extremities: Yes: Normal Inspection, Normal Range of Motion, Non-Tender Neurological: Yes: Alert, Normal Mood/Affect, Normal Response Integumentary: Yes: Normal Color, Dry, Warm Lymphatic: Yes: Within Normal Limits - Diagnostic (1) Weight loss Current Visit: Yes Status: Acute (2) Alcohol dependence with uncomplicated withdrawal Current Visit: Yes Status: Chronic (3) Cannabis dependence, uncomplicated Current Visit: Yes Status: Chronic (4) Nicotine dependence Current Visit: Yes Status: Chronic Qualifiers: Nicotine product type: cigarettes Substance use status: uncomplicated Qualified Code(s): F17.210 - Nicotine dependence, cigarettes, uncomplicated (5) Seizure disorder Current Visit: Yes Status: Chronic Comment: 2006 DUE TO HEAD TRAUMA KEPPRA 1500 MG BID LAST EPISODE 07/07/16 Cleared for Admission [facility] - Detox or Rehab [facility] Level of Care: Medically Managed Detox Regimen/Protocol: Librium Breathalyzer - Breathalyzer Breathalyzer: 0.054 Urine Drug Screen - Test Device Lot number: [id number] Expiration date: 01/16/20 - Control Is test valid?: Yes - Results Drug screen NEGATIVE: No Urine drug screen results: THC-Marijuana Inpatient Rehab Admission - Rehab Decision to Admit Inpatient rehab admission?: No
[2018-06-01] MEDS ORDERED: MELATONIN 5 MG TABLETS PO PRN (17:52)
[2018-06-01] MEDS ORDERED: MAGNESIUM CITRATE 300 ML BOTTLE PO PRN (17:52)
[2018-06-01] MEDS ORDERED: ACETAMINOPHEN 325 MG TABLET (FP) PO PRN ×2 (17:52)
[2018-06-01] MEDS ORDERED: hydrOXYzine PAMOATE 25 MG CAPSULE (FP) PO PRN (17:52)
[2018-06-01] MEDS ORDERED: BISMUTH SUBSALICYLATE 524 MG/30 ML UD PO PRN (17:52)
[2018-06-01] MEDS ORDERED: MAGNESIUM HYDROX 2400MG/30ML ORAL SUSPENSION 30 ML CUP PO PRN (17:52)
[2018-06-01] MEDS ORDERED: METHOCARBAMOL 500 MG TABLET PO PRN (17:52)
[2018-06-01] MEDS ORDERED: MAG HYDROX/AL HYDROX/SIMETH 30 ML UNIT-DOSE CUP PO PRN (17:52)
[2018-06-01] MEDS ORDERED: IBUPROFEN 400 MG TABLET (FP) PO PRN (17:52)
[2018-06-01] MEDS ORDERED: chlordiazePOXIDE HCL 10 MG CAPSULE PO PRN (17:52)
[2018-06-01] MEDS ORDERED: MENTHOL/PHENOL 1 EACH UD MM PRN (17:52)
[2018-06-01] MEDS ORDERED: levETIRAcetam 500 MG TABLET (FP) PO SCH (22:00)
[2018-06-01] MEDS: THIAMINE HCL 100 MG TABLET (FP) PO SCH (22:23)
[2018-06-01] MEDS: chlordiazePOXIDE HCL 25 MG CAPSULE PO SCH (22:23)
[2018-06-02] MEDS: chlordiazePOXIDE HCL 25 MG CAPSULE PO SCH ×2 (05:34→14:42)
[2018-06-02] MEDS: levETIRAcetam 500 MG TABLET (FP) PO SCH ×2 (06:44→17:38)
[2018-06-02] MEDS: NICOTINE 21 MG/24 HOURS TOPICAL PATCH TD SCH (10:15)
[2018-06-02] MEDS: PRENATAL VITAMINS W/ FOLIC ACID TABLET (FP) PO SCH (10:15)
--- NOTE | 2018-06-02 10:55 | PN ---
S CIWA - CIWA Score Nausea/Vomitin-Mild Nausea/No Vomiting Muscle Tremors: 3 Anxiety: 1-Mildly Anxious Agitation: 2 Paroxysmal Sweats: 1-Minimal Palms Moist Orientation: 2-Disoriented Date<2 days Tacttile Disturbances: 0-None Auditory Disturbances: 0-None Visual Disturbances: 0-None Headache: 0-None Present CIWA-Ar Total Score: 10 BHS Progress Note (SOAP) Subjective: history of seizure treated with kappra feeling ok today doing well with librium detox protocol Objective: 06/02/18 10:55 Vital Signs Temperature 97.1 F L 06/02/18 09:10 Pulse Rate 68 06/02/18 09:10 Respiratory Rate 18 06/02/18 09:10 Blood Pressure 105/73 06/02/18 09:10 O2 Sat by Pulse Oximetry (%) 06/02/18 10:55 lab noted Assessment: 06/02/18 10:55 continue detox seizure Plan: continue detox
[2018-06-02 13:01] LABS: ALBUMIN 3.9 g/dl (3.4-5.0); ALK PHOS 43 U/L (45-117); ANION GAP 4 MMOL/L (8-16); BILIRUBIN,TOTAL 0.6 mg/dL (0.2-1); BLOOD UREA NITROGEN 12 mg/dL (7-18); CALCIUM 9.4 mg/dL (8.5-10.1); CHLORIDE 103 mmol/L (98-107); CO2 30 mmol/L (21-32); CREATININE 0.8 mg/dL (0.55-1.3); GLUCOSE,RANDOM 80 mg/dL (74-106); POTASSIUM 4.3 mmol/L (3.5-5.1); SGOT/AST 32 U/L (15-37); SGPT/ALT 27 U/L (13-61); SODIUM 138 mmol/L (136-145)
--- NOTE | 2018-06-02 13:24 | CONSULT ---
[facility] Psychiatric Consult - Data Date of interview: 06/02/18 Admission source: [facility] Identifying data: Another admission to [facility] for this 42 y/o AA male self- referred for detoxification (alcohol, cannabis). Examined at [address] [place] [address]. 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 Substance Abuse History: Confirmed by the patient in this session. Details in current [facility] report : Smoking history: Current every day smoker. Have you smoked in the past 12 months: Yes. Aproximately how many cigarettes per day: 20. Cigars Per Day: 0. Hx Chewing Tobacco Use: No. Initiated information on smoking cessation: Yes. 'Breaking Loose' booklet given: 06/01/18. - Substance & Tx. History. Hx Alcohol Use: Yes. Hx Substance Use: Yes. Substance Use Type : Alcohol, Marijuana. Hx Substance Use Treatment: Yes (Detox: 03/2018 at [facility] ). - Substances abused. Alcohol. Substance route: Oral. Frequency: Daily. Amount used: 15-20 BEERS. Age of first use: 16. Date of last use: . Marijuana/Hashish. Substance route: Smoking. Frequency: Daily. Amount used: 10 JOINTS. Age of first use: 16. 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 Psychiatric History: Patient endorses a history of sychiatric hospitalizations ( [facility] + [facility]). Diagnosed with MDD. Mr Deluna admits to chronic non-adherence to OPD care. Has been off psychotropic medications for months. No contact with psychiatrists. Patient does not follow referrals for aftercare. No history of suicide attempts. Physical/Sexual Abuse/Trauma History: Patient denies history of abuse. Additional Comment: Urine drug screen results: THC-Marijuana. Noted. Mental Status Exam - Mental Status Exam Alert and Oriented to: Time, Place, Person Cognitive Function: Grossly Intact Patient Appearance: Unkempt (thin habitus ; noted surgical scar on scalp from past craniotomy in 2005), Disheveled Mood: Withdrawn, Hopeful Affect: Appropriate, Normal Range Patient Behavior: Fatigued, Appropriate, Cooperative Speech Pattern: Clear Voice Loudness: Normal Thought Process: Goal Oriented Thought Disorder: Not Present Hallucinations: Denies Suicidal Ideation: Denies Homicidal Ideation: Denies Insight/Judgement: Poor Sleep: Fair Appetite: Poor, Weight loss Muscle strength/Tone: Normal Gait/Station: Normal Psychiatric Findings - Problem List ([place] 1, 2,3) (1) Alcohol dependence with uncomplicated withdrawal Current Visit: Yes Status: Chronic (2) Cannabis dependence, uncomplicated Current Visit: Yes Status: Chronic (3) Nicotine dependence Current Visit: Yes Status: Chronic Qualifiers: Nicotine product type: cigarettes Substance use status: uncomplicated Qualified Code(s): F17.210 - Nicotine dependence, cigarettes, uncomplicated (4) Drug-induced mood disorder Current Visit: Yes Status: Chronic - Initial Treatment Plan Initial Treatment Plan: Psychoeducation. Sleep hygiene. Support. Detoxification. Relapse prevention (MAT) : discussed with patient. AA meetings. Observation.
[2018-06-02 13:38] LABS: HEMATOCRIT 42.5 % (35.4-49); HEMOGLOBIN 14.4 GM/dL (11.7-16.9); MCH 35.2 pg (25.7-33.7); MCHC 33.9 g/dl (32.0-35.9); MEAN CELL VOLUME 103.7 fl (80-96); MEAN PLT VOLUME 7.9 fl (7.5-11.1); PLATELET COUNT 237 K/MM3 (134-434); RDW 13.1 % (11.9-15.9); WHITE BLOOD COUNT 5.4 K/mm3 (4.0-10.0)
[2018-06-02] MEDS: THIAMINE HCL 100 MG TABLET (FP) PO SCH (22:26)
[2018-06-02] MEDS: chlordiazePOXIDE 5 MG CAPSULE PO SCH (22:26)
[2018-06-03] MEDS: levETIRAcetam 500 MG TABLET (FP) PO SCH (05:17)
[2018-06-03] MEDS: chlordiazePOXIDE 5 MG CAPSULE PO SCH ×2 (05:18→13:53)
[2018-06-03] MEDS: NICOTINE 21 MG/24 HOURS TOPICAL PATCH TD SCH (10:11)
[2018-06-03] MEDS: PRENATAL VITAMINS W/ FOLIC ACID TABLET (FP) PO SCH (10:11)
[2018-06-03 13:44] VITALS: BP 127/81; PULSE 71; TEMP 96.5
--- NOTE | 2018-06-03 13:58 | PN ---
S CIWA - CIWA Score Nausea/Vomitin-No Nausea/No Vomiting Muscle Tremors: 1-None Visible, but Walling Anxiety: 1-Mildly Anxious Agitation: 1-Slight > Activity Paroxysmal Sweats: No Perspiration Orientation: 0-Oriented Tacttile Disturbances: 0-None Auditory Disturbances: 0-None Visual Disturbances: 0-None Headache: 1-Very Mild CIWA-Ar Total Score: 4 BHS Progress Note (SOAP) Subjective: feeling better social with peers in day room discuss less tremor Objective: 06/03/18 13:57 Vital Signs Temperature 96.5 F L 06/03/18 13:43 Pulse Rate 71 06/03/18 13:43 Respiratory Rate 18 06/03/18 13:43 Blood Pressure 127/81 06/03/18 13:43 O2 Sat by Pulse Oximetry (%) Laboratory Last Values WBC 5.4 K/mm3 (4.0-10.0) 06/02/18 07:00 RBC 4.10 M/mm3 (4.00-5.60) 06/02/18 07:00 Hgb 14.4 GM/dL (11.7-16.9) 06/02/18 07:00 Hct 42.5 % (35.4-49) 06/02/18 07:00 MCV 103.7 fl (80-96) H 06/02/18 07:00 MCH 35.2 pg (25.7-33.7) H 06/02/18 07:00 MCHC 33.9 g/dl (32.0-35.9) 06/02/18 07:00 RDW 13.1 % (11.9-15.9) 06/02/18 07:00 Plt Count 237 K/MM3 (134-434) 06/02/18 07:00 MPV 7.9 fl (7.5-11.1) 06/02/18 07:00 Sodium 138 mmol/L (136-145) 06/02/18 07:00 Potassium 4.3 mmol/L (3.5-5.1) 06/02/18 07:00 Chloride 103 mmol/L (98-107) 06/02/18 07:00 Carbon Dioxide 30 mmol/L (21-32) 06/02/18 07:00 Anion Gap 4 MMOL/L (8-16) L 06/02/18 07:00 BUN 12 mg/dL (7-18) 06/02/18 07:00 Creatinine 0.8 mg/dL (0.55-1.3) 06/02/18 07:00 Creat Clearance w eGFR 107.07 (>60) 06/02/18 07:00 Random Glucose 80 mg/dL (74-106) 06/02/18 07:00 Calcium 9.4 mg/dL (8.5-10.1) 06/02/18 07:00 Total Bilirubin 0.6 mg/dL (0.2-1) 06/02/18 07:00 AST 32 U/L (15-37) 06/02/18 07:00 ALT 27 U/L (13-61) 06/02/18 07:00 Alkaline Phosphatase 43 U/L (45-117) L 06/02/18 07:00 Total Protein 7.0 g/dl (6.4-8.2) 06/02/18 07:00 Albumin 3.9 g/dl (3.4-5.0) 06/02/18 07:00 RPR Titer Nonreactive (NONREACTIVE) 06/02/18 07:00 Hep C Ab Diagnostic <0.1 s/co ratio (0.0-0.9) 06/02/18 07:00 HIV 1&2 Antibody Screen Negative 06/02/18 07:00 HIV P24 Antigen Negative 06/02/18 07:00 lab noted Assessment: 06/03/18 13:58 withdrawal sx Plan: continue detox
--- NOTE | 2018-06-03 18:21 | PN ---
[facility] Progress Note Note: Zone Maintenance Technician was informed by RN on the unit, patient was involved in a verbal altercation with one of his peers and walked off the unit.
--- NOTE | 2018-06-03 18:25 | DS ---
[facility] Detox Discharge Summary Admission Date: 06/01/18 Discharge Date: 06/03/18 - History Present History: Alcohol Dependence, Cannabis Dependence Additional Comments: Patient left AMA and walked off the unit. - Physical Exam Results Vital Signs: Vital Signs Temperature 96.5 F L 06/03/18 13:43 Pulse Rate 71 06/03/18 13:43 Respiratory Rate 18 06/03/18 13:43 Blood Pressure 127/81 06/03/18 13:43 O2 Sat by Pulse Oximetry (%) Pertinent Admission Physical Exam Findings: Vital Signs Temperature 96.5 F L 06/03/18 13:43 Pulse Rate 71 06/03/18 13:43 Respiratory Rate 18 06/03/18 13:43 Blood Pressure 127/81 06/03/18 13:43 O2 Sat by Pulse Oximetry (%) Laboratory Last Values WBC 5.4 K/mm3 (4.0-10.0) 06/02/18 07:00 RBC 4.10 M/mm3 (4.00-5.60) 06/02/18 07:00 Hgb 14.4 GM/dL (11.7-16.9) 06/02/18 07:00 Hct 42.5 % (35.4-49) 06/02/18 07:00 MCV 103.7 fl (80-96) H 06/02/18 07:00 MCH 35.2 pg (25.7-33.7) H 06/02/18 07:00 MCHC 33.9 g/dl (32.0-35.9) 06/02/18 07:00 RDW 13.1 % (11.9-15.9) 06/02/18 07:00 Plt Count 237 K/MM3 (134-434) 06/02/18 07:00 MPV 7.9 fl (7.5-11.1) 06/02/18 07:00 Sodium 138 mmol/L (136-145) 06/02/18 07:00 Potassium 4.3 mmol/L (3.5-5.1) 06/02/18 07:00 Chloride 103 mmol/L (98-107) 06/02/18 07:00 Carbon Dioxide 30 mmol/L (21-32) 06/02/18 07:00 Anion Gap 4 MMOL/L (8-16) L 06/02/18 07:00 BUN 12 mg/dL (7-18) 06/02/18 07:00 Creatinine 0.8 mg/dL (0.55-1.3) 06/02/18 07:00 Creat Clearance w eGFR 107.07 (>60) 06/02/18 07:00 Random Glucose 80 mg/dL (74-106) 06/02/18 07:00 Calcium 9.4 mg/dL (8.5-10.1) 06/02/18 07:00 Total Bilirubin 0.6 mg/dL (0.2-1) 06/02/18 07:00 AST 32 U/L (15-37) 06/02/18 07:00 ALT 27 U/L (13-61) 06/02/18 07:00 Alkaline Phosphatase 43 U/L (45-117) L 06/02/18 07:00 Total Protein 7.0 g/dl (6.4-8.2) 06/02/18 07:00 Albumin 3.9 g/dl (3.4-5.0) 06/02/18 07:00 RPR Titer Nonreactive (NONREACTIVE) 06/02/18 07:00 Hep C Ab Diagnostic <0.1 s/co ratio (0.0-0.9) 06/02/18 07:00 HIV 1&2 Antibody Screen Negative 06/02/18 07:00 HIV P24 Antigen Negative 06/02/18 07:00 - Medication Discharge Medications: Ambulatory Orders levETIRAcetam [Keppra -] 1,500 mg PO BID #60 tablet 06/03/18 - AMA Did Patient Leave Against Medical Advice: Yes
[2018-06-03] MEDS ORDERED: chlordiazePOXIDE HCL 10 MG CAPSULE PO SCH (21:00)
[2018-06-03] MEDS ORDERED: chlordiazePOXIDE HCL 10 MG CAPSULE PO PRN (21:00)
--- NOTE | 2018-06-07 11:18 | EKG ---
Test Reason : Blood Pressure : / mmHG Vent. Rate : 069 BPM Atrial Rate : 069 BPM P-R Int : 150 ms QRS Dur : 082 ms QT Int : 372 ms P-R-T Axes : 085 -04 070 degrees QTc Int : 398 ms NORMAL SINUS RHYTHM RIGHT ATRIAL ENLARGEMENT BORDERLINE ECG WHEN COMPARED WITH ECG OF 22-JUL-2016 19:05, NO SIGNIFICANT CHANGE WAS FOUND Confirmed by ADONAY MINER MD ([id number]) on 06/02/2018 2:27:29 PM Also confirmed by ADONAY MINER MD ([id number]), school photograph editor CAROL NOGUEIRA ([id number]) on 06/07/2018 11:18:29 AM Referred By: Confirmed By:ADONAY MINER MD
== END 2018-06-03 17:45 | disposition left against medical advice (07) | DRG 770 ==
LOC: YASAS 13:25 → Y3N 18:45
PROVIDERS: ADMIT Surgery; ATTEND Surgery
PROC: HZ2ZZZZ Detoxification Services for Substance Abuse Treatment (ICD-10-PCS; principal; 2018-06-01)
DX: F10.230 Alcohol dependence with withdrawal, uncomplicated (principal); F12.20 Cannabis dependence, uncomplicated; F17.210 Nicotine dependence, cigarettes, uncomplicated; F19.24 Other psychoactive substance dependence with psychoactive substance-induced mood disorder; G62.9 Polyneuropathy, unspecified; G40.89 Other seizures; R63.4 Abnormal weight loss; Z86.79 Personal history of other diseases of the circulatory system; Z98.890 Other specified postprocedural states; Z88.8 Allergy status to other drugs, medicaments and biological substances
CPT/HCPCS: 36415; 71046-TC-FY; 80053; 85027; 86593; 86803; 87389; 93005; 93010

== ENCOUNTER 2018-10-08 10:00 | Inpatient (IN) | payer OTHER ==
[2018-10-08 10:27] VITALS: BMI 17.9
--- NOTE | 2018-10-08 11:42 | HP ---
CIWA Score Nausea/Vomitin Muscle Tremors: 3 Anxiety: 2 Agitation: 2 Paroxysmal Sweats: 1-Minimal Palms Moist Orientation: 0-Oriented Tacttile Disturbances: 1-Very Mild Itch/Numbness Auditory Disturbances: 0-None Visual Disturbances: 0-None Headache: 2-Mild CIWA-Ar Total Score: 13 - Admission Criteria OASAS Guidelines: Admission for Medically Managed Detox: Requires at least one of the followin. CIWA greater than 12 2. Seizures within the past 24 hours 3. Delirium tremens within the past 24 hours 4. Hallucinations within the past 24 hours 5. Acute intervention needed for co occurring medical disorder 6. Acute intervention needed for co occurring psychiatric disorder 7. Severe withdrawal that cannot be handled at a lower level of care (continued vomiting, continued diarrhea, abnormal vital signs) requiring intravenous medication and/or fluids 8. Admission ROS S - [facility] Chief Complaint: i need help to stop drinking alcohol Allergies/Adverse Reactions: Allergies Allergy/AdvReac Type Severity Reaction Status Date / Time phenytoin sodium Allergy Intermediate Rash Verified 10/08/18 10:20 [From Dilantin] phenytoin sodium extended Allergy Intermediate Rash Verified 10/08/18 10:20 [From Dilantin] History of Present Illness: this 42 years old male with alcohol dependence,seeking detox and help for stop drinking extensive history of alcohol dependence with several admissions but keep relapsing and non compliance seizure last in 07/04 syncope alcohol related nicotine dependence 1 pack/day would like to take nicotine gum no significant period of sobriety head trauma with surgery left side in 2005 at [facility] living in the skilled nursing plan to go back to out patient program,AA and NA meeting Exam Limitations: No Limitations - Ebola screening Have you traveled outside of the country in the last 21 days: No (N) Have you had contact with anyone from an Ebola affected area: No Do you have a fever: No - Review of Systems Constitutional: Loss of Appetite, Malaise, Night Sweats, Changes in sleep EENT: reports: Nose Congestion Respiratory: reports: No Symptoms reported Cardiac: reports: No Symptoms Reported GI: reports: Nausea, Poor Appetite, Indigestion, Abdominal cramping : reports: No Symptoms Reported Musculoskeletal: reports: Back Pain, Muscle Pain Integumentary: reports: Dryness Neuro: reports: Headache, Tremors, Other (history of head injury with surgery in 2005) Endocrine: reports: No Symptoms Reported Psychiatric: reports: No Sypmtoms Reported, Judgement Intact, Mood/Affect Appropiate, Orientated x3 Other Systems: Reviewed and Negative Patient History - Patient Medical History Hx Anemia: No Hx Asthma: No (Denies ) Hx Chronic Obstructive Pulmonary Disease (COPD): No Hx Cancer: No Hx Cardiac Disorders: No Hx Congestive Heart Failure: No Hx Hypertension: No Hx Hypercholesterolemia: No Hx Pacemaker: No HX Cerebrovascular Accident: No (craniotomy and secondary neuropathy that resolved on the left side) Hx Seizures: Yes (last 07/04) Hx Dementia: No Hx Diabetes: No Hx Gastrointestinal Disorders: No Hx Liver Disease: No Hx Genitourinary Disorders: No Hx Sexually Transmitted Disorders: No Hx Renal Disease (ESRD): No Hx Thyroid Disease: No Hx Human Immunodeficiency Virus (HIV): No (NEGATIVE HX LAST 06/04) Hx Hepatitis C: No Hx Depression: Yes (no med) Hx Suicide Attempt: No Hx Bipolar Disorder: No Hx Schizophrenia: No Other Medical History: no suicidal,no homiidal - Patient Surgical History Past Surgical History: Yes Hx Neurologic Surgery: Yes (Brain 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) Hx Cataract Extraction: No Hx Cardiac Surgery: No Hx Lung Surgery: No Hx Breast Surgery: No Hx Breast Biopsy: No Hx Abdominal Surgery: No Hx Appendectomy: No Hx Cholecystectomy: No Hx Genitourinary Surgery: No Hx Section: No Hx Orthopedic Surgery: No Anesthesia Reaction: No - PPD History Previous Implant?: Yes Documented Results: Positive w/proof Implanted On Prior [facility] Admission?: No Results: CXR(-)06/02/18 PPD to be Administered?: No - Smoking Cessation Smoking history: Current every day smoker Have you smoked in the past 12 months: Yes Aproximately how many cigarettes per day: 20 Cigars Per Day: 0 Hx Chewing Tobacco Use: No Initiated information on smoking cessation: Yes 'Breaking Loose' booklet given: 10/08/18 - Substances abused Alcohol Substance route: Oral Frequency: Daily Amount used: 15-20 OF 40 ONZ OF BEERS Age of first use: 16 Date of last use: 10/08/18 Marijuana/Hashish Substance route: Smoking Frequency: Daily Amount used: 10 JOINTS Age of first use: 16 Date of last use: 10/07/18 Family Disease History - Family Disease History Family Disease History: Diabetes: Mother, Other: Father (NO CONTACT), Brother ( ONLY CHILD) Admission Physical Exam [facility] - Vital Signs Vital Signs: Vital Signs - 24 hr 10/08/18 10:15 Temperature 97.6 F Pulse Rate 74 Respiratory 20 Rate Blood Pressure 134/98 - Physical General Appearance: Yes: Moderate Distress, Tremorous, Irritable, Anxious HEENTM: Yes: Normal ENT Inspection, FLAKITO, Pharynx Normal, Other (scar left parietal area) Respiratory: Yes: Lungs Clear, Normal Breath Sounds, No Respiratory Distress Neck: Yes: Within Normal Limits, Supple, Trachea in good position Breast: Yes: Within Normal Limits Cardiology: Yes: Within Normal Limits, Regular Rhythm, Regular Rate, S1, S2 Abdominal: Yes: Within Normal Limits, Normal Bowel Sounds, Non Tender, Flat, Soft Genitourinary: Yes: Within Normal Limits Back: Yes: Muscle Spasm Musculoskeletal: Yes: Back pain, Muscle Pain Extremities: Yes: Tremors Neurological: Yes: scada technician II-XII NML intact, Fully Oriented, Alert, Motor Strength 5/5 Integumentary: Yes: Dry Lymphatic: Yes: Within Normal Limits - Diagnostic (1) Weight loss Current Visit: No Status: Acute (2) Alcohol dependence with uncomplicated withdrawal Current Visit: No Status: Chronic (3) Cannabis dependence, uncomplicated Current Visit: No Status: Chronic (4) Nicotine dependence Current Visit: No Status: Chronic Qualifiers: Nicotine product type: cigarettes Substance use status: uncomplicated Qualified Code(s): F17.210 - Nicotine dependence, cigarettes, uncomplicated (5) Seizure disorder Current Visit: No Status: Chronic Comment: 2006 DUE TO HEAD TRAUMA KEPPRA 1500 MG BID LAST EPISODE 07/07/16 (6) History of brain surgery Current Visit: Yes Status: Acute Cleared for Admission [facility] - Detox or Rehab [facility] Level of Care: Medically Managed Detox Regimen/Protocol: Librium Breathalyzer - Breathalyzer Breathalyzer: 0.054 Urine Drug Screen - Test Device Lot number: [id number] Expiration date: 01/16/20 - Control Is test valid?: Yes - Results Drug screen NEGATIVE: No Urine drug screen results: THC-Marijuana Inpatient Rehab Admission - Rehab Decision to Admit Inpatient rehab admission?: No
[2018-10-08] MEDS ORDERED: hydrOXYzine PAMOATE 25 MG CAPSULE (FP) PO PRN (11:53)
[2018-10-08] MEDS ORDERED: MELATONIN 5 MG TABLETS PO PRN (11:53)
[2018-10-08] MEDS ORDERED: MAG HYDROX/AL HYDROX/SIMETH 30 ML UNIT-DOSE CUP PO PRN (11:53)
[2018-10-08] MEDS ORDERED: chlordiazePOXIDE HCL 25 MG CAPSULE PO PRN (11:53)
[2018-10-08] MEDS ORDERED: IBUPROFEN 400 MG TABLET (FP) PO PRN (11:53)
[2018-10-08] MEDS ORDERED: METHOCARBAMOL 500 MG TABLET PO PRN (11:53)
[2018-10-08] MEDS ORDERED: NICOTINE POLACRILEX 2 MG GUM BUC PRN (11:53)
[2018-10-08] MEDS ORDERED: MAGNESIUM CITRATE 300 ML BOTTLE PO PRN (11:53)
[2018-10-08] MEDS ORDERED: MAGNESIUM HYDROX 2400MG/30ML ORAL SUSPENSION 30 ML CUP PO PRN (11:53)
[2018-10-08] MEDS ORDERED: MENTHOL/PHENOL 1 EACH UD MM PRN (11:53)
[2018-10-08] MEDS ORDERED: BISMUTH SUBSALICYLATE 524 MG/30 ML UD PO PRN (11:53)
[2018-10-08] MEDS ORDERED: ACETAMINOPHEN 325 MG TABLET (FP) PO PRN ×2 (11:53)
[2018-10-08] MEDS ORDERED: levETIRAcetam 500 MG TABLET (FP) PO SCH (13:00)
--- NOTE | 2018-10-08 13:18 | PN ---
[facility] Progress Note Note: Nurses made this sports writer aware that the patient had already received his Keppra for today. Therefore, will rescing today's dose and order and will continue Keppra 1500 mg BID starting tomorrow, 10/09/18. Dr. Savage
[2018-10-08 14:51] LABS: HEMATOCRIT 39.5 % (35.4-49); HEMOGLOBIN 13.5 GM/dL (11.7-16.9); MCH 35.4 pg (25.7-33.7); MCHC 34.2 g/dl (32.0-35.9); MEAN CELL VOLUME 103.4 fl (80-96); MEAN PLT VOLUME 7.9 fl (7.5-11.1); PLATELET COUNT 241 K/MM3 (134-434); RBC 3.81 M/mm3 (4.00-5.60); RDW 12.9 % (11.9-15.9); WHITE BLOOD COUNT 7.2 K/mm3 (4.0-10.0)
[2018-10-08 15:04] LABS: ALBUMIN 4.2 g/dl (3.4-5.0); BILIRUBIN,TOTAL 0.3 mg/dL (0.2-1); CALCIUM 9.1 mg/dL (8.5-10.1); POTASSIUM 4.1 mmol/L (3.5-5.1); TOT PROT 7.2 g/dl (6.4-8.2)
[2018-10-08] MEDS: chlordiazePOXIDE HCL 25 MG CAPSULE PO SCH ×2 (17:42→22:27)
[2018-10-08] MEDS: levETIRAcetam 500 MG TABLET (FP) PO SCH (18:24)
[2018-10-08] MEDS: THIAMINE HCL 100 MG TABLET (FP) PO SCH (22:26)
[2018-10-09] MEDS: levETIRAcetam 500 MG TABLET (FP) PO SCH ×2 (06:00→17:38)
[2018-10-09] MEDS: chlordiazePOXIDE HCL 25 MG CAPSULE PO SCH ×4 (06:00→22:12)
[2018-10-09] MEDS: PRENATAL VITAMINS W/ FOLIC ACID TABLET (FP) PO SCH (10:57)
--- NOTE | 2018-10-09 15:47 | PN ---
[facility] CIWA - CIWA Score Nausea/Vomitin Muscle Tremors: 2 Anxiety: 3 Agitation: 0-Normal Activity Paroxysmal Sweats: No Perspiration Orientation: 0-Oriented Tacttile Disturbances: 2-Mild Itch/Numbness/Burn Auditory Disturbances: 0-None Visual Disturbances: 2-Mild Sensitivity Headache: 2-Mild CIWA-Ar Total Score: 13 [facility] Progress Note (SOAP) Subjective: Fatigue, Anxious, Tremors, H/A, Nausea. Objective: PATIENT A & O X 3. IN NO ACUTE DISTRESS. 10/09/18 15:46 Vital Signs Temperature 98.0 F 10/09/18 13:12 Pulse Rate 53 L 10/09/18 13:12 Respiratory Rate 18 10/09/18 13:12 Blood Pressure 103/68 10/09/18 13:12 O2 Sat by Pulse Oximetry (%) Laboratory Tests 10/08/18 10/08/18 10/08/18 12:00 12:55 12:55 WBC 7.2 RBC 3.81 L Hgb 13.5 Hct 39.5 MCV 103.4 H MCH 35.4 H MCHC 34.2 RDW 12.9 Plt Count 241 MPV 7.9 Sodium 140 Potassium 4.1 Chloride 104 Carbon Dioxide 29 Anion Gap 7 L BUN 11.0 Creatinine 1.0 Est GFR (CKD-EPI)AfAm 108.63 Est GFR (CKD-EPI)NonAf 93.73 Random Glucose 68 L Calcium 9.1 Total Bilirubin 0.3 AST 31 ALT 32 Alkaline Phosphatase 46 Total Protein 7.2 Albumin 4.2 RPR Titer HIV 1&2 Antibody Screen Cancelled HIV P24 Antigen Cancelled 10/08/18 12:55 WBC RBC Hgb Hct MCV MCH MCHC RDW Plt Count MPV Sodium Potassium Chloride Carbon Dioxide Anion Gap BUN Creatinine Est GFR (CKD-EPI)AfAm Est GFR (CKD-EPI)NonAf Random Glucose Calcium Total Bilirubin AST ALT Alkaline Phosphatase Total Protein Albumin RPR Titer Nonreactive HIV 1&2 Antibody Screen HIV P24 Antigen LABS NOTED. RESULTS OF HIV AB TEST PENDING. 10/09/18 15:46 Assessment: 10/09/18 15:46 WITHDRAWAL SYMPTOMS. Plan: CONTINUE DETOX.
[2018-10-09] MEDS: THIAMINE HCL 100 MG TABLET (FP) PO SCH (22:12)
[2018-10-10] MEDS: chlordiazePOXIDE HCL 25 MG CAPSULE PO SCH ×4 (05:38→22:23)
[2018-10-10] MEDS: levETIRAcetam 500 MG TABLET (FP) PO SCH ×2 (05:38→17:09)
[2018-10-10] MEDS: PRENATAL VITAMINS W/ FOLIC ACID TABLET (FP) PO SCH (10:48)
--- NOTE | 2018-10-10 14:12 | PN ---
[facility] CIWA - CIWA Score Nausea/Vomitin-No Nausea/No Vomiting Muscle Tremors: 2 Anxiety: 3 Agitation: 3 Paroxysmal Sweats: 1-Minimal Palms Moist Orientation: 0-Oriented Tacttile Disturbances: 0-None Auditory Disturbances: 0-None Visual Disturbances: 0-None Headache: 1-Very Mild CIWA-Ar Total Score: 10 S Progress Note (SOAP) Subjective: 42 years old male admitted on 10/08/18 for acute alcohol withdrawal sx management doing well with librium detox regimen adherence with keppra tolerat food and fluid well social with peers in day room Objective: 10/10/18 14:09 Vital Signs Temperature 97 F L 10/10/18 13:13 Pulse Rate 58 L 10/10/18 13:13 Respiratory Rate 18 10/10/18 13:13 Blood Pressure 129/86 10/10/18 13:13 O2 Sat by Pulse Oximetry (%) Laboratory Last Values WBC 7.2 K/mm3 (4.0-10.0) 10/08/18 12:55 RBC 3.81 M/mm3 (4.00-5.60) L 10/08/18 12:55 Hgb 13.5 GM/dL (11.7-16.9) 10/08/18 12:55 Hct 39.5 % (35.4-49) 10/08/18 12:55 MCV 103.4 fl (80-96) H 10/08/18 12:55 MCH 35.4 pg (25.7-33.7) H 10/08/18 12:55 MCHC 34.2 g/dl (32.0-35.9) 10/08/18 12:55 RDW 12.9 % (11.9-15.9) 10/08/18 12:55 Plt Count 241 K/MM3 (134-434) 10/08/18 12:55 MPV 7.9 fl (7.5-11.1) 10/08/18 12:55 Sodium 140 mmol/L (136-145) 10/08/18 12:55 Potassium 4.1 mmol/L (3.5-5.1) 10/08/18 12:55 Chloride 104 mmol/L (98-107) 10/08/18 12:55 Carbon Dioxide 29 mmol/L (21-32) 10/08/18 12:55 Anion Gap 7 MMOL/L (8-16) L 10/08/18 12:55 BUN 11.0 mg/dL (7-18) 10/08/18 12:55 Creatinine 1.0 mg/dL (0.55-1.3) 10/08/18 12:55 Est GFR (CKD-EPI)AfAm 108.63 10/08/18 12:55 Est GFR (CKD-EPI)NonAf 93.73 10/08/18 12:55 Random Glucose 68 mg/dL (74-106) L 10/08/18 12:55 Calcium 9.1 mg/dL (8.5-10.1) 10/08/18 12:55 Total Bilirubin 0.3 mg/dL (0.2-1) 10/08/18 12:55 AST 31 U/L (15-37) 10/08/18 12:55 ALT 32 U/L (13-61) 10/08/18 12:55 Alkaline Phosphatase 46 U/L (45-117) 10/08/18 12:55 Total Protein 7.2 g/dl (6.4-8.2) 10/08/18 12:55 Albumin 4.2 g/dl (3.4-5.0) 10/08/18 12:55 RPR Titer Nonreactive (NONREACTIVE) 10/08/18 12:55 HIV 1&2 Ag/Ab, 4th Gen Non reactive (Non Reactive) 10/08/18 14:00 HIV 1&2 Antibody Screen Cancelled 10/08/18 12:00 HIV P24 Antigen Cancelled 10/08/18 12:00 lab noted Assessment: 10/10/18 14:10 alcohol withdrawal sx Plan: continue librium detox regmen
[2018-10-10] MEDS: THIAMINE HCL 100 MG TABLET (FP) PO SCH (22:23)
[2018-10-11] MEDS ORDERED: chlordiazePOXIDE HCL 10 MG CAPSULE PO PRN
[2018-10-11] MEDS: levETIRAcetam 500 MG TABLET (FP) PO SCH (05:24)
[2018-10-11] MEDS: chlordiazePOXIDE HCL 10 MG CAPSULE PO SCH ×2 (05:24→10:09)
[2018-10-11 09:28] VITALS: BP 119/85; PULSE 66; TEMP 97.6
[2018-10-11] MEDS: PRENATAL VITAMINS W/ FOLIC ACID TABLET (FP) PO SCH (10:09)
--- NOTE | 2018-10-11 11:32 | DS ---
[facility] Detox Discharge Summary Admission Date: 10/08/18 Discharge Date: 10/11/18 - History Present History: Alcohol Dependence Additional Comments: 42 years old male admitted on 10/08/18 for alcohol withdrawal sx management doing well with libirum detox regimen no complication through out the detox stay reporting feel better today insists to return to work today alert oriented x 3 steady gait speech clearly coherently denies dizziness no shortness of breath encourage the patient to attend community support group Pertinent Past History: seizure encourage the patient to tow picker keppra from the pharmacy before return to work - Physical Exam Results Vital Signs: Vital Signs Temperature 97.6 F 10/11/18 09:27 Pulse Rate 66 10/11/18 09:27 Respiratory Rate 18 10/11/18 09:27 Blood Pressure 119/85 10/11/18 09:27 O2 Sat by Pulse Oximetry (%) Pertinent Admission Physical Exam Findings: alcohol withdrawal sx Laboratory Last Values WBC 7.2 K/mm3 (4.0-10.0) 10/08/18 12:55 RBC 3.81 M/mm3 (4.00-5.60) L 10/08/18 12:55 Hgb 13.5 GM/dL (11.7-16.9) 10/08/18 12:55 Hct 39.5 % (35.4-49) 10/08/18 12:55 MCV 103.4 fl (80-96) H 10/08/18 12:55 MCH 35.4 pg (25.7-33.7) H 10/08/18 12:55 MCHC 34.2 g/dl (32.0-35.9) 10/08/18 12:55 RDW 12.9 % (11.9-15.9) 10/08/18 12:55 Plt Count 241 K/MM3 (134-434) 10/08/18 12:55 MPV 7.9 fl (7.5-11.1) 10/08/18 12:55 Sodium 140 mmol/L (136-145) 10/08/18 12:55 Potassium 4.1 mmol/L (3.5-5.1) 10/08/18 12:55 Chloride 104 mmol/L (98-107) 10/08/18 12:55 Carbon Dioxide 29 mmol/L (21-32) 10/08/18 12:55 Anion Gap 7 MMOL/L (8-16) L 10/08/18 12:55 BUN 11.0 mg/dL (7-18) 10/08/18 12:55 Creatinine 1.0 mg/dL (0.55-1.3) 10/08/18 12:55 Est GFR (CKD-EPI)AfAm 108.63 10/08/18 12:55 Est GFR (CKD-EPI)NonAf 93.73 10/08/18 12:55 Random Glucose 68 mg/dL (74-106) L 10/08/18 12:55 Calcium 9.1 mg/dL (8.5-10.1) 10/08/18 12:55 Total Bilirubin 0.3 mg/dL (0.2-1) 10/08/18 12:55 AST 31 U/L (15-37) 10/08/18 12:55 ALT 32 U/L (13-61) 10/08/18 12:55 Alkaline Phosphatase 46 U/L (45-117) 10/08/18 12:55 Total Protein 7.2 g/dl (6.4-8.2) 10/08/18 12:55 Albumin 4.2 g/dl (3.4-5.0) 10/08/18 12:55 RPR Titer Nonreactive (NONREACTIVE) 10/08/18 12:55 HIV 1&2 Ag/Ab, 4th Gen Non reactive (Non Reactive) 10/08/18 14:00 HIV 1&2 Antibody Screen Cancelled 10/08/18 12:00 HIV P24 Antigen Cancelled 10/08/18 12:00 lab noted - Treatment Hospital Course: Detox Protocol Followed, Detoxed Safely, Responded well, Discharged Condition Good, Rehab Referral Accepted Patient has Accepted a Rehab Referral to: community support approach - Medication Discharge Medications: Ambulatory Orders levETIRAcetam [Keppra -] 1,500 mg PO Q12H #60 tablet 10/11/18 - Diagnosis (1) Weight loss Current Visit: Yes Status: Acute (2) Alcohol dependence with uncomplicated withdrawal Current Visit: Yes Status: Acute (3) Nicotine dependence Current Visit: Yes Status: Acute Qualifiers: Nicotine product type: cigarettes Substance use status: in withdrawal Qualified Code(s): F17.213 - Nicotine dependence, cigarettes, with withdrawal (4) Seizure disorder Current Visit: Yes Status: Chronic - AMA Did Patient Leave Against Medical Advice: No CIWA Score - CIWA Score Nausea/Vomitin-No Nausea/No Vomiting Muscle Tremors: 2 Anxiety: 1-Mildly Anxious Agitation: 1-Slight > Activity Paroxysmal Sweats: 1-Minimal Palms Moist Orientation: 0-Oriented Tacttile Disturbances: 0-None Auditory Disturbances: 0-None Visual Disturbances: 0-None Headache: 0-None Present CIWA-Ar Total Score: 5
[2018-10-12] MEDS ORDERED: chlordiazePOXIDE HCL 10 MG CAPSULE PO SCH (05:00)
[2018-10-13] MEDS ORDERED: chlordiazePOXIDE HCL 10 MG CAPSULE PO ONE (05:00)
== END 2018-10-11 11:05 | disposition home or self-care (01) | DRG 775 ==
LOC: YASAS 10:00 → Y3N 11:39
PROVIDERS: ADMIT Surgery; ATTEND Surgery
PROC: HZ2ZZZZ Detoxification Services for Substance Abuse Treatment (ICD-10-PCS; principal; 2018-10-08)
DX: F10.230 Alcohol dependence with withdrawal, uncomplicated (principal); F12.20 Cannabis dependence, uncomplicated; F17.213 Nicotine dependence, cigarettes, with withdrawal; R56.1 Post traumatic seizures; Z87.820 Personal history of traumatic brain injury; R63.4 Abnormal weight loss; Z68.1 Body mass index [BMI] 19.9 or less, adult
CPT/HCPCS: 36415; 80053; 85027; 86593; 87389

== ENCOUNTER 2019-02-28 16:27 | Inpatient (IN) | payer OTHER ==
[2019-02-28 18:42] VITALS: BMI 19.5
--- NOTE | 2019-02-28 19:23 | HP ---
CIWA Score Nausea/Vomitin-No Nausea/No Vomiting Muscle Tremors: 2 Anxiety: 0-No Anxiety, at Ease Agitation: 0-Normal Activity Paroxysmal Sweats: No Perspiration Orientation: 0-Oriented Tacttile Disturbances: 0-None Auditory Disturbances: 0-None Visual Disturbances: 0-None Headache: 3-Moderate CIWA-Ar Total Score: 5 - Admission Criteria [facility]ASAS Guidelines: Admission for Medically Managed Detox: Requires at least one of the followin. CIWA greater than 12 2. Seizures within the past 24 hours 3. Delirium tremens within the past 24 hours 4. Hallucinations within the past 24 hours 5. Acute intervention needed for co occurring medical disorder 6. Acute intervention needed for co occurring psychiatric disorder 7. Severe withdrawal that cannot be handled at a lower level of care (continued vomiting, continued diarrhea, abnormal vital signs) requiring intravenous medication and/or fluids 8. Admitting History and Physical - Smoking History Smoking history: Current every day smoker Have you smoked in the past 12 months: Yes Aproximately how many cigarettes per day: 20 - Alcohol/Substance Use Hx Alcohol Use: Yes Admission ROS [facility] Allergies/Adverse Reactions: Allergies Allergy/AdvReac Type Severity Reaction Status Date / Time phenytoin sodium Allergy Intermediate Rash Verified 10/08/18 10:20 [From Dilantin] phenytoin sodium extended Allergy Intermediate Rash Verified 10/08/18 10:20 [From Dilantin] History of Present Illness: pt here requesting detox from etoh use , reports first age of use 17 , current daily use 10-11 x 40 oz/beer /day x daily relapsed immediately after d/c from this facility 10/08/18 , latest use this morning , + seizures most recently Feb 17 2019 , on Keppra 1500 mg bid pmhx : seizure d/o PSHX : s/p fall while intoxicated 2005 w/ cerebral hemorrhage ( SDH ? ) and trepanation has been on keppra since cannabis - daily tobacco - daily psych : denies shx : lives alone , SSI Exam Limitations: Clinical Condition - Ebola screening Have you traveled outside of the country in the last 21 days: No (N) Have you had contact with anyone from an Ebola affected area: No Do you have a fever: No - Review of Systems Constitutional: No Symptoms Reported EENT: reports: No Symptoms Reported Respiratory: reports: No Symptoms reported Cardiac: reports: No Symptoms Reported GI: reports: No Symptoms Reported : reports: No Symptoms Reported Musculoskeletal: reports: Muscle Pain (back) Integumentary: reports: No Symptoms Reported Neuro: reports: Headache Endocrine: reports: No Symptoms Reported Psychiatric: reports: Orientated x3, Agitated Patient History - Patient Medical History Hx Anemia: No Hx Asthma: No (Denies ) Hx Chronic Obstructive Pulmonary Disease (COPD): No Hx Cancer: No Hx Cardiac Disorders: No Hx Congestive Heart Failure: No Hx Hypertension: No Hx Hypercholesterolemia: No Hx Pacemaker: No HX Cerebrovascular Accident: No (craniotomy and secondary neuropathy that resolved on the left side) Hx Seizures: Yes (last 07/04) Hx Dementia: No Hx Diabetes: No Hx Gastrointestinal Disorders: No Hx Liver Disease: No Hx Genitourinary Disorders: No Hx Sexually Transmitted Disorders: No Hx Renal Disease (ESRD): No Hx Thyroid Disease: No Hx Human Immunodeficiency Virus (HIV): No (NEGATIVE HX LAST 06/04) Hx Hepatitis C: No Hx Depression: Yes (no med) Hx Suicide Attempt: No Hx Bipolar Disorder: No Hx Schizophrenia: No - Patient Surgical History Past Surgical History: Yes Hx Neurologic Surgery: Yes (Brain 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) Hx Cataract Extraction: No Hx Cardiac Surgery: No Hx Lung Surgery: No Hx Breast Surgery: No Hx Breast Biopsy: No Hx Abdominal Surgery: No Hx Appendectomy: No Hx Cholecystectomy: No Hx Genitourinary Surgery: No Hx Section: No Hx Orthopedic Surgery: No Anesthesia Reaction: No - PPD History Date: 02/07/15 Results: CXR(-)06/02/18 - Smoking Cessation Smoking history: Current every day smoker Have you smoked in the past 12 months: Yes Aproximately how many cigarettes per day: 20 Cigars Per Day: 0 Hx Chewing Tobacco Use: No Initiated information on smoking cessation: Yes 'Breaking Loose' booklet given: 02/28/19 - Substances abused Alcohol Substance route: Oral Frequency: Daily Amount used: 15-20 OF 40 ONZ OF BEERS Age of first use: 16 Date of last use: 02/28/19 Marijuana/Hashish Substance route: Smoking Frequency: Daily Amount used: 10 JOINTS Age of first use: 16 Date of last use: 02/28/19 Admission Physical Exam BHS - Vital Signs Vital Signs: Vital Signs - 24 hr 02/28/19 18:29 Temperature 98.3 F Pulse Rate 86 Respiratory 18 Rate Blood Pressure 124/83 - Physical General Appearance: Yes: Mild Distress, Anxious HEENTM: Yes: EOMI, Hearing grossly Normal, Normal Voice, Other (surgicalscar left parietal w/ bony deformity/ indentation) Respiratory: Yes: Chest Non-Tender, Lungs Clear, Normal Breath Sounds, No Respiratory Distress, No Accessory Muscle Use Neck: Yes: No masses,lesions,Nodules, Trachea in good position Cardiology: Yes: Regular Rhythm, Regular Rate, S1, S2 Abdominal: Yes: Non Tender, Soft Musculoskeletal: Yes: Gait Steady Extremities: Yes: Normal Range of Motion, Non-Tender Neurological: Yes: Fully Oriented, Alert, Depressed Affect Integumentary: Yes: Warm - Diagnostic (1) Alcohol dependence with uncomplicated withdrawal Current Visit: Yes Status: Chronic (2) Cannabis dependence, uncomplicated Current Visit: Yes Status: Chronic Breathalyzer - Breathalyzer Breathalyzer: 0 Urine Drug Screen - Test Device Lot number: [id number] Expiration date: 09/15/20 - Control Is test valid?: Yes - Results Drug screen NEGATIVE: No Urine drug screen results: THC-Marijuana Inpatient Rehab Admission - Rehab Decision to Admit Inpatient rehab admission?: No
[2019-02-28] MEDS ORDERED: IBUPROFEN 400 MG TABLET (FP) PO PRN (19:27)
[2019-02-28] MEDS ORDERED: MAGNESIUM CITRATE 300 ML BOTTLE PO PRN (19:27)
[2019-02-28] MEDS ORDERED: MAGNESIUM HYDROX 2400MG/30ML ORAL SUSPENSION 30 ML CUP PO PRN (19:27)
[2019-02-28] MEDS ORDERED: BISMUTH SUBSALICYLATE 524 MG/30 ML UD PO PRN (19:27)
[2019-02-28] MEDS ORDERED: hydrOXYzine PAMOATE 25 MG CAPSULE (FP) PO PRN (19:27)
[2019-02-28] MEDS ORDERED: MENTHOL/PHENOL 1 EACH UD MM PRN (19:27)
[2019-02-28] MEDS ORDERED: MAG HYDROX/AL HYDROX/SIMETH 30 ML UNIT-DOSE CUP PO PRN (19:27)
[2019-02-28] MEDS ORDERED: ACETAMINOPHEN 325 MG TABLET (FP) PO PRN ×2 (19:27)
[2019-02-28] MEDS ORDERED: chlordiazePOXIDE HCL 25 MG CAPSULE PO PRN (19:28)
[2019-02-28] MEDS ORDERED: chlordiazePOXIDE HCL 25 MG CAPSULE PO ONE (20:00)
[2019-02-28] MEDS: levETIRAcetam 500 MG TABLET (FP) PO SCH (21:58)
[2019-02-28] MEDS: THIAMINE HCL 100 MG TABLET (FP) PO SCH (21:58)
[2019-02-28] MEDS: MELATONIN 5 MG TABLETS PO PRN (22:01)
[2019-02-28] MEDS: chlordiazePOXIDE HCL 25 MG CAPSULE PO SCH (22:01)
[2019-03-01] MEDS: chlordiazePOXIDE HCL 25 MG CAPSULE PO SCH ×4 (06:03→22:26)
[2019-03-01 09:45] LABS: HEMATOCRIT 40.3 % (35.4-49); HEMOGLOBIN 13.5 GM/dL (11.7-16.9); MCH 34.7 pg (25.7-33.7); MCHC 33.5 g/dl (32.0-35.9); MEAN CELL VOLUME 103.5 fl (80-96); PLATELET COUNT 255 K/MM3 (134-434); RBC 3.89 M/mm3 (4.00-5.60); RDW 13.2 % (11.9-15.9); WHITE BLOOD COUNT 6.2 K/mm3 (4.0-10.0)
[2019-03-01 10:03] LABS: ALBUMIN 3.6 g/dl (3.4-5.0); BILIRUBIN,TOTAL 0.4 mg/dL (0.2-1); CALCIUM 9.1 mg/dL (8.5-10.1); POTASSIUM 4.2 mmol/L (3.5-5.1); TOT PROT 6.9 g/dl (6.4-8.2)
--- NOTE | 2019-03-01 10:05 | PN ---
S CIWA - CIWA Score Nausea/Vomitin-No Nausea/No Vomiting Muscle Tremors: 4-Moderate,w/Arms Extend Anxiety: 3 Agitation: 0-Normal Activity Paroxysmal Sweats: 2 Orientation: 0-Oriented Tacttile Disturbances: 0-None Auditory Disturbances: 0-None Visual Disturbances: 1-Very Mild Sensitivity Headache: 2-Mild CIWA-Ar Total Score: 12 BHS Progress Note (SOAP) Subjective: 43 years old male admitted on 02/28/19 for alcohol withdrawal sx management treating with librium detox regimen nausea after breakfast feeling tired headache prefers to resting in bed today Objective: 03/01/19 10:07 Vital Signs Temperature 95.1 F L 03/01/19 09:03 Pulse Rate 61 03/01/19 09:03 Respiratory Rate 16 03/01/19 09:03 Blood Pressure 133/85 03/01/19 09:03 O2 Sat by Pulse Oximetry (%) Laboratory Last Values WBC 6.2 K/mm3 (4.0-10.0) 03/01/19 07:20 RBC 3.89 M/mm3 (4.00-5.60) L 03/01/19 07:20 Hgb 13.5 GM/dL (11.7-16.9) 03/01/19 07:20 Hct 40.3 % (35.4-49) 03/01/19 07:20 MCV 103.5 fl (80-96) H 03/01/19 07:20 MCH 34.7 pg (25.7-33.7) H 03/01/19 07:20 MCHC 33.5 g/dl (32.0-35.9) 03/01/19 07:20 RDW 13.2 % (11.9-15.9) 03/01/19 07:20 Plt Count 255 K/MM3 (134-434) 03/01/19 07:20 MPV 8.0 fl (7.5-11.1) 03/01/19 07:20 Sodium 141 mmol/L (136-145) 03/01/19 07:20 Potassium 4.2 mmol/L (3.5-5.1) 03/01/19 07:20 Chloride 106 mmol/L (98-107) 03/01/19 07:20 Carbon Dioxide 30 mmol/L (21-32) 03/01/19 07:20 Anion Gap 5 MMOL/L (8-16) L 03/01/19 07:20 BUN 16.0 mg/dL (7-18) 03/01/19 07:20 Creatinine 1.0 mg/dL (0.55-1.3) 03/01/19 07:20 Est GFR (CKD-EPI)AfAm 107.87 03/01/19 07:20 Est GFR (CKD-EPI)NonAf 93.07 03/01/19 07:20 Random Glucose 132 mg/dL (74-106) H 03/01/19 07:20 Calcium 9.1 mg/dL (8.5-10.1) 03/01/19 07:20 Total Bilirubin 0.4 mg/dL (0.2-1) 03/01/19 07:20 AST 37 U/L (15-37) 03/01/19 07:20 ALT 51 U/L (13-61) 03/01/19 07:20 Alkaline Phosphatase 67 U/L (45-117) 03/01/19 07:20 Total Protein 6.9 g/dl (6.4-8.2) 03/01/19 07:20 Albumin 3.6 g/dl (3.4-5.0) 03/01/19 07:20 lab noted Assessment: 03/01/19 10:09 alcohol withdrawal weight loss Plan: librium regimen ensure supplement
[2019-03-01] MEDS: levETIRAcetam 500 MG TABLET (FP) PO SCH ×2 (10:27→22:25)
[2019-03-01] MEDS: PRENATAL VITAMINS W/ FOLIC ACID TABLET (FP) PO SCH (10:27)
[2019-03-01] MEDS: THIAMINE HCL 100 MG TABLET (FP) PO SCH (22:25)
[2019-03-02] MEDS: chlordiazePOXIDE HCL 25 MG CAPSULE PO SCH ×4 (05:51→22:42)
--- NOTE | 2019-03-02 10:35 | PN ---
[facility] CIWA - CIWA Score Nausea/Vomitin-Mild Nausea/No Vomiting Muscle Tremors: 2 Anxiety: 2 Agitation: 2 Paroxysmal Sweats: No Perspiration Orientation: 0-Oriented Tacttile Disturbances: 1-Very Mild Itch/Numbness Auditory Disturbances: 0-None Visual Disturbances: 0-None Headache: 2-Mild CIWA-Ar Total Score: 10 S Progress Note (SOAP) Subjective: alert,irritable,anxious,interrupted sleep, Objective: 03/02/19 10:33 Vital Signs Temperature 97.0 F L 03/02/19 09:10 Pulse Rate 70 03/02/19 09:10 Respiratory Rate 16 03/02/19 09:10 Blood Pressure 137/90 03/02/19 09:10 O2 Sat by Pulse Oximetry (%) Laboratory Last Values WBC 6.2 K/mm3 (4.0-10.0) 03/01/19 07:20 RBC 3.89 M/mm3 (4.00-5.60) L 03/01/19 07:20 Hgb 13.5 GM/dL (11.7-16.9) 03/01/19 07:20 Hct 40.3 % (35.4-49) 03/01/19 07:20 MCV 103.5 fl (80-96) H 03/01/19 07:20 MCH 34.7 pg (25.7-33.7) H 03/01/19 07:20 MCHC 33.5 g/dl (32.0-35.9) 03/01/19 07:20 RDW 13.2 % (11.9-15.9) 03/01/19 07:20 Plt Count 255 K/MM3 (134-434) 03/01/19 07:20 MPV 8.0 fl (7.5-11.1) 03/01/19 07:20 Sodium 141 mmol/L (136-145) 03/01/19 07:20 Potassium 4.2 mmol/L (3.5-5.1) 03/01/19 07:20 Chloride 106 mmol/L (98-107) 03/01/19 07:20 Carbon Dioxide 30 mmol/L (21-32) 03/01/19 07:20 Anion Gap 5 MMOL/L (8-16) L 03/01/19 07:20 BUN 16.0 mg/dL (7-18) 03/01/19 07:20 Creatinine 1.0 mg/dL (0.55-1.3) 03/01/19 07:20 Est GFR (CKD-EPI)AfAm 107.87 03/01/19 07:20 Est GFR (CKD-EPI)NonAf 93.07 03/01/19 07:20 Random Glucose 132 mg/dL (74-106) H 03/01/19 07:20 Calcium 9.1 mg/dL (8.5-10.1) 03/01/19 07:20 Total Bilirubin 0.4 mg/dL (0.2-1) 03/01/19 07:20 AST 37 U/L (15-37) 03/01/19 07:20 ALT 51 U/L (13-61) 03/01/19 07:20 Alkaline Phosphatase 67 U/L (45-117) 03/01/19 07:20 Total Protein 6.9 g/dl (6.4-8.2) 03/01/19 07:20 Albumin 3.6 g/dl (3.4-5.0) 03/01/19 07:20 RPR Titer Nonreactive (NONREACTIVE) 03/01/19 07:20 Assessment: 03/02/19 10:34 withdrawal symptom Plan: continue detox librium regimen,fasting glucose in am
[2019-03-02] MEDS: levETIRAcetam 500 MG TABLET (FP) PO SCH ×2 (10:39→22:42)
[2019-03-02] MEDS: PRENATAL VITAMINS W/ FOLIC ACID TABLET (FP) PO SCH (10:39)
[2019-03-02] MEDS: THIAMINE HCL 100 MG TABLET (FP) PO SCH (22:42)
[2019-03-03] MEDS ORDERED: chlordiazePOXIDE HCL 10 MG CAPSULE PO PRN
[2019-03-03] MEDS: chlordiazePOXIDE HCL 10 MG CAPSULE PO SCH ×4 (06:24→22:12)
[2019-03-03] MEDS: PRENATAL VITAMINS W/ FOLIC ACID TABLET (FP) PO SCH (10:13)
[2019-03-03] MEDS: levETIRAcetam 500 MG TABLET (FP) PO SCH ×2 (10:13→22:12)
--- NOTE | 2019-03-03 12:03 | PN ---
S CIWA - CIWA Score Nausea/Vomitin-No Nausea/No Vomiting Muscle Tremors: 2 Anxiety: 2 Agitation: 2 Paroxysmal Sweats: 1-Minimal Palms Moist Orientation: 0-Oriented Tacttile Disturbances: 0-None Auditory Disturbances: 0-None Visual Disturbances: 1-Very Mild Sensitivity Headache: 1-Very Mild CIWA-Ar Total Score: 9 S Progress Note (SOAP) Subjective: 43 years old male admitted on 02/28/19 for alcohol withdrawal sx management treating with librium detox regimen feeling ok today slept through the night ambulating from bed to bathroom steady gait encourage the patient to attend behavior and psychosocial therapies groups and meetings while in the detox Objective: 03/03/19 12:04 Vital Signs Temperature 98.1 F 03/03/19 09:10 Pulse Rate 64 03/03/19 09:10 Respiratory Rate 18 03/03/19 09:10 Blood Pressure 109/70 03/03/19 09:10 O2 Sat by Pulse Oximetry (%) Laboratory Last Values WBC 6.2 K/mm3 (4.0-10.0) 03/01/19 07:20 RBC 3.89 M/mm3 (4.00-5.60) L 03/01/19 07:20 Hgb 13.5 GM/dL (11.7-16.9) 03/01/19 07:20 Hct 40.3 % (35.4-49) 03/01/19 07:20 MCV 103.5 fl (80-96) H 03/01/19 07:20 MCH 34.7 pg (25.7-33.7) H 03/01/19 07:20 MCHC 33.5 g/dl (32.0-35.9) 03/01/19 07:20 RDW 13.2 % (11.9-15.9) 03/01/19 07:20 Plt Count 255 K/MM3 (134-434) 03/01/19 07:20 MPV 8.0 fl (7.5-11.1) 03/01/19 07:20 Sodium 141 mmol/L (136-145) 03/01/19 07:20 Potassium 4.2 mmol/L (3.5-5.1) 03/01/19 07:20 Chloride 106 mmol/L (98-107) 03/01/19 07:20 Carbon Dioxide 30 mmol/L (21-32) 03/01/19 07:20 Anion Gap 5 MMOL/L (8-16) L 03/01/19 07:20 BUN 16.0 mg/dL (7-18) 03/01/19 07:20 Creatinine 1.0 mg/dL (0.55-1.3) 03/01/19 07:20 Est GFR (CKD-EPI)AfAm 107.87 03/01/19 07:20 Est GFR (CKD-EPI)NonAf 93.07 03/01/19 07:20 Random Glucose 132 mg/dL (74-106) H 03/01/19 07:20 Fasting Glucose 119 mg/dL (74-106) H 03/03/19 08:20 Calcium 9.1 mg/dL (8.5-10.1) 03/01/19 07:20 Total Bilirubin 0.4 mg/dL (0.2-1) 03/01/19 07:20 AST 37 U/L (15-37) 03/01/19 07:20 ALT 51 U/L (13-61) 03/01/19 07:20 Alkaline Phosphatase 67 U/L (45-117) 03/01/19 07:20 Total Protein 6.9 g/dl (6.4-8.2) 03/01/19 07:20 Albumin 3.6 g/dl (3.4-5.0) 03/01/19 07:20 RPR Titer Nonreactive (NONREACTIVE) 03/01/19 07:20 lab noted Assessment: 03/03/19 12:05 alcohol withdrawal Plan: librium regimen
[2019-03-03] MEDS: THIAMINE HCL 100 MG TABLET (FP) PO SCH (22:12)
[2019-03-03] MEDS: MELATONIN 5 MG TABLETS PO PRN (22:12)
[2019-03-04] MEDS: chlordiazePOXIDE HCL 10 MG CAPSULE PO SCH ×2 (05:43→17:26)
[2019-03-04] MEDS: PRENATAL VITAMINS W/ FOLIC ACID TABLET (FP) PO SCH (10:04)
[2019-03-04] MEDS: levETIRAcetam 500 MG TABLET (FP) PO SCH ×2 (10:05→22:10)
--- NOTE | 2019-03-04 13:34 | PN ---
S CIWA - CIWA Score Nausea/Vomitin-Mild Nausea/No Vomiting Muscle Tremors: None Anxiety: 1-Mildly Anxious Agitation: 0-Normal Activity Paroxysmal Sweats: 2 Orientation: 0-Oriented Tacttile Disturbances: 1-Very Mild Itch/Numbness Auditory Disturbances: 0-None Visual Disturbances: 0-None Headache: 0-None Present CIWA-Ar Total Score: 5 BHS Progress Note (SOAP) Subjective: feeling better Objective: 03/04/19 13:32 Vital Signs Temperature 98.6 F 03/04/19 09:37 Pulse Rate 85 03/04/19 09:37 Respiratory Rate 03/04/19 09:37 Blood Pressure 122/87 03/04/19 09:37 O2 Sat by Pulse Oximetry (%) Laboratory Tests 03/01/19 03/01/19 03/01/19 07:20 07:20 07:20 WBC 6.2 RBC 3.89 L Hgb 13.5 Hct 40.3 MCV 103.5 H MCH 34.7 H MCHC 33.5 RDW 13.2 Plt Count 255 MPV 8.0 Sodium 141 Potassium 4.2 Chloride 106 Carbon Dioxide 30 Anion Gap 5 L BUN 16.0 Creatinine 1.0 Est GFR (CKD-EPI)AfAm 107.87 Est GFR (CKD-EPI)NonAf 93.07 Random Glucose 132 H Fasting Glucose Calcium 9.1 Total Bilirubin 0.4 AST 37 ALT 51 Alkaline Phosphatase 67 Total Protein 6.9 Albumin 3.6 RPR Titer Nonreactive 03/03/19 08:20 WBC RBC Hgb Hct MCV MCH MCHC RDW Plt Count MPV Sodium Potassium Chloride Carbon Dioxide Anion Gap BUN Creatinine Est GFR (CKD-EPI)AfAm Est GFR (CKD-EPI)NonAf Random Glucose Fasting Glucose 119 H Calcium Total Bilirubin AST ALT Alkaline Phosphatase Total Protein Albumin RPR Titer pt aox3 in nad ambulating well Assessment: 03/04/19 13:33 withdrawal sx's Plan: cont. detox increase fluids d/c in am
--- NOTE | 2019-03-04 17:06 | CONSULT ---
[facility] Psychiatric Consult - Data Date of interview: 03/04/19 Admission source: [facility] Identifying data: Revisit to [facility] and admission to [address] [place] [address] for this 43 y/o AA male self-referred for detoxification treatment. [facility] issues : alcohol, cannabis, nicotine. Patient is single without children, unemployed/disabled, domiciled (lives with his mother) and supported on SSI benefits. Substance Abuse History: Discussed with the patient. Details in current [facility] report as follows : Smoking history: Current every day smoker. Have you smoked in the past 12 months: Yes. Aproximately how many cigarettes per day: 20. Cigars Per Day: 0. Hx Chewing Tobacco Use: No. Initiated information on smoking cessation: Yes. 'Breaking Loose' booklet given: 02/28/19. - Substances abused. Alcohol. Substance route: Oral. Frequency: Daily. Amount used: 15-20 OF 40 ONZ OF BEERS. Age of first use: 16. Date of last use : 02/28/19. Marijuana/Hashish. Substance route: Smoking. Frequency: Daily. Amount used: 10 JOINTS. Age of first use: 16. 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 Psychiatric History: Patient reports history of two psychiatric hospitalizations in 2009 + 2011 ([facility] + [facility]) . Reason for admissions : suicidal ideation. Diagnosed with MDD. Mr Deluna declares that he was prescribed lexapro but stopped taking the medication immediately after his discharge from the inpatient service. Never followed with psychiatric OPD care. Avoided contact with psychiatrists except when admitted to [facility] treatment centers (detox or rehab units). Patient denies history of suicide attempts. Physical/Sexual Abuse/Trauma History: Patient denies history of abuse. Additional Comment: Urine drug screen results: THC-Marijuana. Noted. Mental Status Exam - Mental Status Exam Alert and Oriented to: Time, Place, Person Cognitive Function: Good Patient Appearance: Well Groomed Mood: Withdrawn, Hopeful Affect: Appropriate, Normal Range Patient Behavior: Fatigued, Appropriate, Cooperative Speech Pattern: Clear, Appropriate Voice Loudness: Normal Thought Process: Goal Oriented Thought Disorder: Not Present Hallucinations: Denies Suicidal Ideation: Denies Homicidal Ideation: Denies Insight/Judgement: Poor Sleep: Well Appetite: Good Gait/Station: Other (not observed.) Psychiatric Findings - Problem List ([place] 1, 2,3) (1) Alcohol dependence with uncomplicated withdrawal Current Visit: Yes Status: Acute (2) Cannabis dependence, uncomplicated Current Visit: Yes Status: Chronic (3) Nicotine dependence Current Visit: Yes Status: Chronic Qualifiers: Nicotine product type: cigarettes Substance use status: in withdrawal Qualified Code(s): F17.213 - Nicotine dependence, cigarettes, with withdrawal - Initial Treatment Plan Initial Treatment Plan: Psychoeducation. Sleep hygiene. Detoxification in progress. Support. AA meetings. Groups. [facility] services explained to patient : declines. Observation.
[2019-03-04] MEDS: THIAMINE HCL 100 MG TABLET (FP) PO SCH (22:10)
[2019-03-04] MEDS: MELATONIN 5 MG TABLETS PO PRN (22:11)
[2019-03-05] MEDS ORDERED: chlordiazePOXIDE HCL 10 MG CAPSULE PO ONE (05:00)
[2019-03-05 06:20] VITALS: BP 96/65; PULSE 77; TEMP 97.1
--- NOTE | 2019-03-05 14:03 | DS ---
[facility] Detox Discharge Summary Admission Date: 02/28/19 Discharge Date: 03/05/19 - History Present History: Alcohol Dependence, Cannabis Dependence Additional Comments: Pt is medically cleared and discharged today to [facility] rehab for continued management. Pt completed the detox protocol. Pt is encouraged to follow through with the rehab protocol. Pt verbalized understanding. Pt is alert and oriented x3 and in no acute respiratory distress. Pertinent Past History: H/o alcohol and cannabis use disorder. - Physical Exam Results Vital Signs: Vital Signs Temperature 97.1 F L 03/05/19 06:19 Pulse Rate 77 03/05/19 06:19 Respiratory Rate 18 03/05/19 06:19 Blood Pressure 96/65 03/05/19 06:19 O2 Sat by Pulse Oximetry (%) Vital Signs 03/05/19 06:19 Temperature 97.1 F L Pulse Rate 77 Respiratory 18 Rate Blood Pressure 96/65 Laboratory Last Values WBC 6.2 K/mm3 (4.0-10.0) 03/01/19 07:20 RBC 3.89 M/mm3 (4.00-5.60) L 03/01/19 07:20 Hgb 13.5 GM/dL (11.7-16.9) 03/01/19 07:20 Hct 40.3 % (35.4-49) 03/01/19 07:20 MCV 103.5 fl (80-96) H 03/01/19 07:20 MCH 34.7 pg (25.7-33.7) H 03/01/19 07:20 MCHC 33.5 g/dl (32.0-35.9) 03/01/19 07:20 RDW 13.2 % (11.9-15.9) 03/01/19 07:20 Plt Count 255 K/MM3 (134-434) 03/01/19 07:20 MPV 8.0 fl (7.5-11.1) 03/01/19 07:20 Sodium 141 mmol/L (136-145) 03/01/19 07:20 Potassium 4.2 mmol/L (3.5-5.1) 03/01/19 07:20 Chloride 106 mmol/L (98-107) 03/01/19 07:20 Carbon Dioxide 30 mmol/L (21-32) 03/01/19 07:20 Anion Gap 5 MMOL/L (8-16) L 03/01/19 07:20 BUN 16.0 mg/dL (7-18) 03/01/19 07:20 Creatinine 1.0 mg/dL (0.55-1.3) 03/01/19 07:20 Est GFR (CKD-EPI)AfAm 107.87 03/01/19 07:20 Est GFR (CKD-EPI)NonAf 93.07 03/01/19 07:20 Random Glucose 132 mg/dL (74-106) H 03/01/19 07:20 Fasting Glucose 119 mg/dL (74-106) H 03/03/19 08:20 Calcium 9.1 mg/dL (8.5-10.1) 03/01/19 07:20 Total Bilirubin 0.4 mg/dL (0.2-1) 03/01/19 07:20 AST 37 U/L (15-37) 03/01/19 07:20 ALT 51 U/L (13-61) 03/01/19 07:20 Alkaline Phosphatase 67 U/L (45-117) 03/01/19 07:20 Total Protein 6.9 g/dl (6.4-8.2) 03/01/19 07:20 Albumin 3.6 g/dl (3.4-5.0) 03/01/19 07:20 RPR Titer Nonreactive (NONREACTIVE) 03/01/19 07:20 Labs noted. Pertinent Admission Physical Exam Findings: withdrawal symptoms. - Treatment Hospital Course: Detox Protocol Followed, Detoxed Safely, Responded well, Discharged Condition Good, Rehab Referral Accepted Patient has Accepted a Rehab Referral to: [facility] - Medication Discharge Medications: Ambulatory Orders levETIRAcetam [Keppra -] 1,500 mg PO BID 02/28/19 levETIRAcetam [Keppra -] 1,500 mg PO BID #90 tablet 03/04/19 - Diagnosis (1) Alcohol dependence with uncomplicated withdrawal Status: Acute (2) History of brain surgery Status: Acute (3) Cannabis dependence, uncomplicated Status: Chronic (4) Nicotine dependence Status: Chronic Qualifiers: Nicotine product type: cigarettes Substance use status: in withdrawal Qualified Code(s): F17.213 - Nicotine dependence, cigarettes, with withdrawal (5) Seizure disorder Status: Chronic - AMA Did Patient Leave Against Medical Advice: No
== END 2019-03-05 08:50 | disposition home or self-care (01) | DRG 776 ==
LOC: YASAS 16:27 → Y3N 20:26
PROVIDERS: ADMIT Allergy & Immunology; ATTEND Allergy & Immunology
PROC: HZ2ZZZZ Detoxification Services for Substance Abuse Treatment (ICD-10-PCS; principal; 2019-02-28)
DX: F12.20 Cannabis dependence, uncomplicated (principal); F17.213 Nicotine dependence, cigarettes, with withdrawal; G40.909 Epilepsy, unspecified, not intractable, without status epilepticus; R63.4 Abnormal weight loss; Z98.890 Other specified postprocedural states; Z88.8 Allergy status to other drugs, medicaments and biological substances
CPT/HCPCS: 36415; 80053; 82947; 85027; 86593

== ENCOUNTER 2019-08-18 10:52 | Inpatient (IN) | payer OTHER ==
--- NOTE | 2019-08-18 11:09 | BHS.RME ---
Substance Use & Tx History - Substance Use History Alcohol Substance amount: 10 beers Frequency of use: Daily Substance route: Oral Date of Last Use: 08/18/19 Methadone Substance amount: 6 blunts Frequency of use: Daily Substance route: Smoking Date of Last Use: 08/18/19 Nicotine Substance amount: 1 pack Frequency of use: Daily Substance route: Smoking Date of Last Use: 08/18/19 Physical/Psych/Mental Status - Behavior General Behavior: Increased activity (restlessness, agitation) Eye Contact: Normal - Cooperativeness Cooperativeness: Cooperative - Thinking Thought Processes: Tight, Logical, Goal Directed - Physical Health Problems Is patient presently having any pain?: No Does patient presently have any injuries (include location): No Does patient currently have a fever: No Is patient : No CIWA Nausea/Vomitin-Mild Nausea/No Vomiting Muscle Tremors: 1-None Visible, but [place] Anxiety: 1-Mildly Anxious Agitation: 1-Slight > Activity Paroxysmal Sweats: 1-Minimal Palms Moist Orientation: 0-Oriented Tacttile Disturbances: 0-None Auditory Disturbances: 0-None Visual Disturbances: 0-None Headache: 0-None Present CIWA-Ar Total Score: 5
--- NOTE | 2019-08-18 12:01 | HP ---
CIWA Score Nausea/Vomitin-Mild Nausea/No Vomiting Muscle Tremors: 1-None Visible, but [place] Anxiety: 1-Mildly Anxious Agitation: 1-Slight > Activity Paroxysmal Sweats: 1-Minimal Palms Moist Orientation: 0-Oriented Tacttile Disturbances: 0-None Auditory Disturbances: 0-None Visual Disturbances: 0-None Headache: 0-None Present CIWA-Ar Total Score: 5 - Admission Criteria OASAS Guidelines: Admission for Medically Managed Detox: Requires at least one of the followin. CIWA greater than 12 2. Seizures within the past 24 hours 3. Delirium tremens within the past 24 hours 4. Hallucinations within the past 24 hours 5. Acute intervention needed for co occurring medical disorder 6. Acute intervention needed for co occurring psychiatric disorder 7. Severe withdrawal that cannot be handled at a lower level of care (continued vomiting, continued diarrhea, abnormal vital signs) requiring intravenous medication and/or fluids 8. Admitting History and Physical - Admission Chief Complaint: " I want to be admitted and I want to complete detox this time." History of Present Illness: 43 year old male with history of alcohol dependence. He was last at [facility] from 06/26-06/29/19 and left AMA. Alcohol: 10 beers daily 40 oz. 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 Marijuana: 6 blunts daily, started smoking at age 17 Nicotine: 1 pack smoking since age 17 PMH: Seizures since 03/2019 Psur fall with craniotomy and residual neuropathy that is now resolved left sided. Psych: Depression He is homeless in [facility] and no legal issues pending. He has agreed to sign contract for completion of detox CIWA=5 Breathalyzer: 0.257 Urine Tox: He meets criteria for detox as he has poor recovery environment and has had multiple failed attempts at treatment. - Smoking History Smoking history: Current every day smoker Have you smoked in the past 12 months: Yes Aproximately how many cigarettes per day: 20 - Alcohol/Substance Use Hx Alcohol Use: Yes Admission ROS [facility] - HPI Allergies/Adverse Reactions: Allergies Allergy/AdvReac Type Severity Reaction Status Date / Time phenytoin sodium Allergy Intermediate Rash Verified 06/27/19 19:30 [From Dilantin] phenytoin sodium extended Allergy Intermediate Rash Verified 06/27/19 19:30 [From Dilantin] Exam Limitations: No Limitations - Ebola screening Have you traveled outside of the country in the last 21 days: No Have you had contact with anyone from an Ebola affected area: No Have you been sick,other than usual withdrawal symptoms: No Do you have a fever: No - Review of Systems Constitutional: Chills, Unintentional Wgt. Loss EENT: reports: No Symptoms Reported Respiratory: reports: No Symptoms reported Cardiac: reports: No Symptoms Reported GI: reports: No Symptoms Reported : reports: No Symptoms Reported Musculoskeletal: reports: No Symptoms Reported Integumentary: reports: No Symptoms Reported Neuro: reports: No Symptoms reported Endocrine: reports: No Symptoms Reported Hematology: reports: No Symptoms Reported Psychiatric: reports: Judgement Intact, Mood/Affect Appropiate, Orientated x3, Anxious Other Systems: Reviewed and Negative Patient History - Patient Medical History Hx Anemia: No Hx Asthma: No Hx Chronic Obstructive Pulmonary Disease (COPD): No Hx Cancer: No Hx Cardiac Disorders: No Hx Congestive Heart Failure: No Hx Hypertension: No Hx Hypercholesterolemia: No Hx Pacemaker: No HX Cerebrovascular Accident: No (craniotomy and secondary neuropathy that resolved on the left side) Hx Seizures: Yes (last 03/2019) Hx Dementia: No Hx Diabetes: No Hx Gastrointestinal Disorders: No Hx Liver Disease: No Hx Genitourinary Disorders: No Hx Sexually Transmitted Disorders: No Hx Renal Disease (ESRD): No Hx Thyroid Disease: No Hx Human Immunodeficiency Virus (HIV): No (NEGATIVE HX LAST 06/04) Hx Hepatitis C: No Hx Depression: Yes (Not on med) Hx Suicide Attempt: No (Denies suicidal ideation at this time) Hx Bipolar Disorder: No Hx Schizophrenia: No - Patient Surgical History Past Surgical History: Yes Hx Neurologic Surgery: Yes (Brain 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) Hx Cataract Extraction: No Hx Cardiac Surgery: No Hx Lung Surgery: No Hx Breast Surgery: No Hx Breast Biopsy: No Hx Abdominal Surgery: No Hx Appendectomy: No Hx Cholecystectomy: No Hx Genitourinary Surgery: No Hx Section: No Hx Orthopedic Surgery: No Anesthesia Reaction: No - PPD History Previous Implant?: No Documented Results: Positive w/proof Date: 02/07/15 Results: CXR(-)06/02/18 PPD to be Administered?: No - Smoking Cessation Smoking history: Current every day smoker Have you smoked in the past 12 months: Yes Aproximately how many cigarettes per day: 20 Cigars Per Day: 0 Hx Chewing Tobacco Use: No Initiated information on smoking cessation: Yes 'Breaking Loose' booklet given: 08/18/19 - Substances abused Alcohol Substance route: Oral Frequency: Daily Amount used: 10 beers Age of first use: 14 Date of last use: 08/18/19 Marijuana/Hashish Substance route: Smoking Frequency: Daily Amount used: 6 blunts Age of first use: 17 Date of last use: 08/18/19 Admission Physical Exam [facility] - Physical General Appearance: Yes: Thin, Tremorous, Sweating, Anxious HEENTM: Yes: EOMI, Hearing grossly Normal, Normal ENT Inspection, Normocephalic, Normal Voice, FLAKITO, Pharynx Normal, Tm's normal, Other (large scar left head) Respiratory: Yes: Chest Non-Tender, Lungs Clear, Normal Breath Sounds, No Respiratory Distress, No Accessory Muscle Use Neck: Yes: No masses,lesions,Nodules Breast: Yes: Within Normal Limits Cardiology: Yes: Regular Rhythm, Regular Rate, S1, S2 Abdominal: Yes: Normal Bowel Sounds, Flat, Soft, Surgical Scar (righ hypograstric scar) Genitourinary: Yes: Within Normal Limits Back: Yes: Normal Inspection Musculoskeletal: Yes: full range of Motion, Gait Steady, Pelvis Stable, Other (lipoma mid thoracic back) Extremities: Yes: Normal Capillary Refill, Normal Inspection, Normal Range of Motion, Non-Tender, Other (callouses bilateral toes) Neurological: Yes: 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 intact, Fully Oriented, Alert, Motor Strength 5/5, Normal Mood/Affect, Normal Response Integumentary: Yes: Normal Color, Dry, Warm Lymphatic: Yes: Within Normal Limits - Diagnostic (1) PPD positive Current Visit: Yes Status: Acute (2) Alcohol dependence with uncomplicated withdrawal Current Visit: Yes Status: Chronic (3) Cannabis dependence, uncomplicated Current Visit: Yes Status: Chronic (4) Depressive disorder Current Visit: Yes Status: Chronic (5) Nicotine dependence Current Visit: Yes Status: Chronic Qualifiers: Nicotine product type: cigarettes Substance use status: uncomplicated Qualified Code(s): F17.210 - Nicotine dependence, cigarettes, uncomplicated (6) Seizure disorder Current Visit: Yes Status: Chronic Comment: 2006 DUE TO HEAD TRAUMA [facility] 1500 MG BID LAST EPISODE 2019 (7) History of brain surgery Current Visit: Yes Status: Resolved Cleared for Admission BHS - Detox or Rehab [facility] Level of Care: Medically Managed Detox Regimen/Protocol: Librium Claeared for Rehab Admission: No Screened but not Admitted - Documentation of Visit Screened but not Admitted: No Breathalyzer - Breathalyzer Breathalyzer: 0.257 Urine Drug Screen - Test Device Lot number: [id number] Expiration date: 09/15/20 - Control Is test valid?: Yes - Results Drug screen NEGATIVE: No Urine drug screen results: THC-Marijuana, BZO-Benzodiazepines Inpatient Rehab Admission - Rehab Decision to Admit Inpatient rehab admission?: No
[2019-08-18] MEDS ORDERED: IBUPROFEN 400 MG TABLET (FP) PO PRN (12:09)
[2019-08-18] MEDS ORDERED: MAG HYDROX/AL HYDROX/SIMETH 30 ML UNIT-DOSE CUP PO PRN (12:09)
[2019-08-18] MEDS ORDERED: chlordiazePOXIDE HCL 25 MG CAPSULE PO PRN (12:09)
[2019-08-18] MEDS ORDERED: ACETAMINOPHEN 325 MG TABLET (FP) PO PRN ×2 (12:09)
[2019-08-18] MEDS ORDERED: BISMUTH SUBSALICYLATE 262 MG/15 ML BTL PO PRN (12:09)
[2019-08-18] MEDS ORDERED: MENTHOL/PHENOL 1 EACH UD MM PRN (12:09)
[2019-08-18] MEDS ORDERED: MAGNESIUM HYDROX 2400MG/30ML ORAL SUSPENSION 30 ML CUP PO PRN (12:09)
[2019-08-18] MEDS ORDERED: ONDANSETRON *ODT* 4 MG TABLET SL ONE (12:09)
[2019-08-18] MEDS ORDERED: MAGNESIUM CITRATE 300 ML BOTTLE PO PRN (12:09)
[2019-08-18] MEDS ORDERED: NICOTINE POLACRILEX 2 MG GUM BUC PRN (12:09)
[2019-08-18] MEDS ORDERED: METHOCARBAMOL 500 MG TABLET PO PRN (12:09)
[2019-08-18 13:08] VITALS: BMI 18.8
[2019-08-18] MEDS: chlordiazePOXIDE HCL 25 MG CAPSULE PO SCH ×3 (13:29→22:09)
[2019-08-18] MEDS: NICOTINE 7 MG/24 HOURS TOPICAL PATCH TD SCH (13:29)
[2019-08-18] MEDS: PRENATAL VITAMINS W/ FOLIC ACID TABLET (FP) PO SCH (13:29)
[2019-08-18] MEDS: hydrOXYzine PAMOATE 25 MG CAPSULE (FP) PO SCH ×3 (13:32→22:09)
[2019-08-18 16:36] LABS: HEMATOCRIT 41.2 % (35.4-49); HEMOGLOBIN 13.8 GM/dL (11.7-16.9); MCH 34.9 pg (25.7-33.7); MCHC 33.5 g/dl (32.0-35.9); MEAN CELL VOLUME 104.3 fl (80-96); MEAN PLT VOLUME 8.2 fl (7.5-11.1); PLATELET COUNT 243 K/MM3 (134-434); RBC 3.95 M/mm3 (4.00-5.60); RDW 14.7 % (11.9-15.9); WHITE BLOOD COUNT 6.7 K/mm3 (4.0-10.0)
[2019-08-18 16:50] LABS: ALBUMIN 3.8 g/dl (3.4-5.0); BLOOD UREA NITROGEN 9.8 mg/dL (7-18); CALCIUM 8.8 mg/dL (8.5-10.1); CREATININE 0.8 mg/dL (0.55-1.3); POTASSIUM 4.1 mmol/L (3.5-5.1)
[2019-08-18] MEDS ORDERED: levETIRAcetam 500 MG TABLET (FP) PO ONE (19:02)
[2019-08-18] MEDS ORDERED: levETIRAcetam 500 MG TABLET (FP) PO SCH (22:00)
[2019-08-18] MEDS: THIAMINE HCL 100 MG TABLET (FP) PO SCH (22:09)
[2019-08-18] MEDS: MELATONIN 5 MG TABLETS PO SCH (22:10)
[2019-08-19] MEDS: levETIRAcetam 500 MG TABLET (FP) PO SCH ×3 (05:43→17:34)
[2019-08-19] MEDS: hydrOXYzine PAMOATE 25 MG CAPSULE (FP) PO SCH ×5 (05:43→22:24)
[2019-08-19] MEDS: chlordiazePOXIDE HCL 25 MG CAPSULE PO SCH ×4 (05:43→22:24)
--- NOTE | 2019-08-19 07:57 | CONSULT ---
[facility] Psychiatric Consult - Data Date of interview: 08/19/19 Admission source: Self-referred Identifying data: Mr Deluna is a 43 years old single Black male, unemployed receiving SSI, domiciled living with his mother seeking detox treatment for alcohol and cannabis Substance Abuse History: Reports history of alcohol and marijuana use. Refer to addiction counselor's summary for further information Medical History: Significant for seizure disorder (post-traumatic), neurosurgery in 2005 for brain hemorrhage (craniotomy) due to head trauma in 2005 and residual neuropathy and PPD+. Smokes cigarettes 1 ppd Psychiatric History: Patient is known for multiple previous admissions to this facility. Reports two previous psychiatric hospitalizations at [facility] and [facility] both after being brought to the hospitals for suicidal ideations while intoxicated. He denies treatment with psychotropic medications other than Keppra for his seizure. Denies ever seeing any psychi atrist in an outpatient setting for any sort of psychiatric treatment. Reports that besides these 2 previous admissions, he only sees psychiatrist only during admissions to detox/rehab. During most recent admission to this facility, he saw casualty underwriter on 06/28/19 and he was not prescribed any medication. According to EMR, he was never prescribed psychotropic medications in all his admissions to this [facility]. During a previous admission to this facility in 2013, he told casualty underwriter that he had a psychiatric admision to [facility] in 2011 for suicidal ideations and he was prescribed Lexapro. Denies previous suicide attempt. At present, denies experiencing depressive symptoms, S/H ideations. Physical/Sexual Abuse/Trauma History: Denies history of alcohol and cannabis use. Refer to addiction counselor's summary for further information Mental Status Exam - Mental Status Exam Alert and Oriented to: Time, Place, Person Cognitive Function: Fair Patient Appearance: Well Groomed Mood: Hopeful, Euthymic Affect: Appropriate Patient Behavior: Cooperative Speech Pattern: Clear Voice Loudness: Normal Thought Process: Intact Hallucinations: Denies Suicidal Ideation: Denies Homicidal Ideation: Denies Insight/Judgement: Poor Sleep: Well Appetite: Good Muscle strength/Tone: Normal Gait/Station: Normal Psychiatric Findings - Problem List ([place] 1, 2,3) (1) Substance induced mood disorder Current Visit: Yes Status: Resolved (2) Alcohol dependence with uncomplicated withdrawal Current Visit: Yes Status: Acute (3) Cannabis dependence, uncomplicated Current Visit: Yes Status: Acute (4) Nicotine dependence Current Visit: Yes Status: Chronic Qualifiers: Nicotine product type: cigarettes Substance use status: uncomplicated Qualified Code(s): F17.210 - Nicotine dependence, cigarettes, uncomplicated (5) PPD positive Current Visit: Yes Status: Acute (6) Seizure disorder Current Visit: Yes Status: Chronic Comment: 2005 DUE TO HEAD TRAUMA KEPPRA 1500 MG BID LAST EPISODE 2019 (7) History of brain surgery Current Visit: Yes Status: Resolved - Initial Treatment Plan Initial Treatment Plan: Continue inpatient detoxification
--- NOTE | 2019-08-19 10:15 | PN ---
[facility] CIWA - CIWA Score Nausea/Vomitin-No Nausea/No Vomiting Muscle Tremors: 1-None Visible, but [place] Anxiety: 1-Mildly Anxious Agitation: 0-Normal Activity Paroxysmal Sweats: No Perspiration Orientation: 1-Uncertain about Date Tacttile Disturbances: 0-None Auditory Disturbances: 0-None Visual Disturbances: 0-None Headache: 0-None Present CIWA-Ar Total Score: 3 BHS Progress Note (SOAP) Subjective: Asking for Keppra to be changed to 6 a and 6p Objective: 08/19/19 10:13 PE Gnl: WDWN HEENT: left craniotomy scar, well healed MS: alert Motor: moves limbs well, no drift Laboratory Tests 08/18/19 08/18/19 08/18/19 12:20 12:20 12:20 WBC 6.7 RBC 3.95 L Hgb 13.8 Hct 41.2 MCV 104.3 H MCH 34.9 H MCHC 33.5 RDW 14.7 Plt Count 243 MPV 8.2 Sodium 140 Potassium 4.1 Chloride 102 Carbon Dioxide 28 Anion Gap 9 BUN 9.8 Creatinine 0.8 Est GFR (CKD-EPI)AfAm 128.60 Est GFR (CKD-EPI)NonAf 110.96 Random Glucose 98 Calcium 8.8 Total Bilirubin 1.0 AST 26 ALT 23 Alkaline Phosphatase 54 Total Protein 7.0 Albumin 3.8 Syphilis Serology Non-reactive HIV Ag/Ab Combo Qual 08/18/19 13:45 WBC RBC Hgb Hct MCV MCH MCHC RDW Plt Count MPV Sodium Potassium Chloride Carbon Dioxide Anion Gap BUN Creatinine Est GFR (CKD-EPI)AfAm Est GFR (CKD-EPI)NonAf Random Glucose Calcium Total Bilirubin AST ALT Alkaline Phosphatase Total Protein Albumin Syphilis Serology HIV Ag/Ab Combo Qual Negative Vital Signs Temperature 97.6 F 08/19/19 08:56 Pulse Rate 64 08/19/19 08:56 Respiratory Rate 18 08/19/19 08:56 Blood Pressure 111/70 08/19/19 08:56 O2 Sat by Pulse Oximetry (%) 96 08/19/19 06:01 Assessment: 1. Alcohol use disorder 2. Cannabis use disorder 3. Nicotine use disorder 4. Seizures since Mar of this year 5. Craniotomy s/p fall in 2005 6. Depression Plan: 1. Librium protocol 2. Nicoderm 3. Change Keprra to 6a, 6p
[2019-08-19] MEDS: PRENATAL VITAMINS W/ FOLIC ACID TABLET (FP) PO SCH (10:23)
[2019-08-19] MEDS: NICOTINE 7 MG/24 HOURS TOPICAL PATCH TD SCH (10:25)
[2019-08-19] MEDS: THIAMINE HCL 100 MG TABLET (FP) PO SCH (22:24)
[2019-08-19] MEDS: MELATONIN 5 MG TABLETS PO SCH (22:24)
[2019-08-20] MEDS ORDERED: chlordiazePOXIDE HCL 25 MG CAPSULE PO SCH (05:00)
[2019-08-20] MEDS: hydrOXYzine PAMOATE 25 MG CAPSULE (FP) PO SCH (05:28)
[2019-08-20] MEDS: levETIRAcetam 500 MG TABLET (FP) PO SCH (05:28)
[2019-08-20 06:19] VITALS: BP 118/78; PULSE 52; TEMP 97.1
--- NOTE | 2019-08-20 12:30 | DS ---
[facility] Detox Discharge Summary Admission Date: 08/18/19 Discharge Date: 08/20/19 (Pt left AMA) - History Present History: Alcohol Dependence, Cannabis Dependence Additional Comments: As per H&P: "43 year old male with history of alcohol dependence. He was [facility] at [facility] from 06/26-06/29/19 and left AMA. Alcohol: 10 beers daily 40 oz. 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 Marijuana: 6 blunts daily, started smoking at age 17 Nicotine: 1 pack smoking since age 17 PMH: Seizures since 03/2019 Psur fall with craniotomy and residual neuropathy that is now resolved left sided. Psych: Depression He is homeless in [facility] and no legal issues pending. He has agreed to sign contract for completion of detox ". Pt left AMA. Pt did not complete the detox protocol. Pt states, "i have something personal to take care of". An attempt to let pt stay and complete the detox protocol failed. Pt is encouraged to follow-up with an outpatient CD program and also to follow-up with his pmd which he verbalized understanding. PE: Respiratory: Lungs clear, in no acute respiratory distress. Cardiac: Regular rhythm, regular rate, s1 s2. Neuro: Alert and oriented x3 Musculoskeletal: Full ROM and ambulatory. Pertinent Past History: h/o seizures, alcohol, and cannabis use disorder. - Physical Exam Results Vital Signs: Vital Signs Temperature 97.1 F L 08/20/19 05:21 Pulse Rate 52 L 08/20/19 05:21 Respiratory Rate 18 08/20/19 06:30 Blood Pressure 118/78 08/20/19 05:21 O2 Sat by Pulse Oximetry (%) 99 08/20/19 05:21 Vital Signs 08/20/19 08/20/19 05:21 06:30 Temperature 97.1 F L Pulse Rate 52 L Respiratory 16 18 Rate Blood Pressure 118/78 O2 Sat by Pulse 99 Oximetry (%) Laboratory Last Values WBC 6.7 K/mm3 (4.0-10.0) 08/18/19 12:20 RBC 3.95 M/mm3 (4.00-5.60) L 08/18/19 12:20 Hgb 13.8 GM/dL (11.7-16.9) 08/18/19 12:20 Hct 41.2 % (35.4-49) 08/18/19 12:20 MCV 104.3 fl (80-96) H 08/18/19 12:20 MCH 34.9 pg (25.7-33.7) H 08/18/19 12:20 MCHC 33.5 g/dl (32.0-35.9) 08/18/19 12:20 RDW 14.7 % (11.9-15.9) 08/18/19 12:20 Plt Count 243 K/MM3 (134-434) 08/18/19 12:20 MPV 8.2 fl (7.5-11.1) 08/18/19 12:20 Sodium 140 mmol/L (136-145) 08/18/19 12:20 Potassium 4.1 mmol/L (3.5-5.1) 08/18/19 12:20 Chloride 102 mmol/L (98-107) 08/18/19 12:20 Carbon Dioxide 28 mmol/L (21-32) 08/18/19 12:20 Anion Gap 9 MMOL/L (8-16) 08/18/19 12:20 BUN 9.8 mg/dL (7-18) 08/18/19 12:20 Creatinine 0.8 mg/dL (0.55-1.3) 08/18/19 12:20 Est GFR (CKD-EPI)AfAm 128.60 08/18/19 12:20 Est GFR (CKD-EPI)NonAf 110.96 08/18/19 12:20 Random Glucose 98 mg/dL (74-106) 08/18/19 12:20 Calcium 8.8 mg/dL (8.5-10.1) 08/18/19 12:20 Total Bilirubin 1.0 mg/dL (0.2-1) 08/18/19 12:20 AST 26 U/L (15-37) 08/18/19 12:20 ALT 23 U/L (13-61) 08/18/19 12:20 Alkaline Phosphatase 54 U/L (45-117) 08/18/19 12:20 Total Protein 7.0 g/dl (6.4-8.2) 08/18/19 12:20 Albumin 3.8 g/dl (3.4-5.0) 08/18/19 12:20 Syphilis Serology Non-reactive (NONREACTIVE) 08/18/19 12:20 HIV Ag/Ab Combo Qual Negative (NEGATIVE) 08/18/19 13:45 Labs noted. Pertinent Admission Physical Exam Findings: withdrawal symptoms. - Treatment Hospital Course: Detox Protocol Followed - Medication Discharge Medications: Ambulatory Orders levETIRAcetam [Keppra -] 1,500 mg PO BID #90 tablet 03/04/19 - Diagnosis (1) Alcohol use disorder Status: Chronic (2) Alcohol dependence with uncomplicated withdrawal Status: Acute (3) Cannabis dependence, uncomplicated Status: Acute (4) Nicotine dependence Status: Chronic Qualifiers: Nicotine product type: cigarettes Substance use status: uncomplicated Qualified Code(s): F17.210 - Nicotine dependence, cigarettes, uncomplicated (5) Seizure disorder Status: Chronic - AMA Did Patient Leave Against Medical Advice: Yes
[2019-08-21] MEDS ORDERED: chlordiazePOXIDE HCL 10 MG CAPSULE PO PRN
[2019-08-21] MEDS ORDERED: chlordiazePOXIDE HCL 10 MG CAPSULE PO SCH (05:00)
[2019-08-22] MEDS ORDERED: chlordiazePOXIDE HCL 10 MG CAPSULE PO SCH (05:00)
[2019-08-23] MEDS ORDERED: chlordiazePOXIDE HCL 10 MG CAPSULE PO ONE (05:00)
== END 2019-08-20 09:03 | disposition left against medical advice (07) | DRG 770 ==
LOC: YASAS 10:52 → Y3N 12:25
PROVIDERS: ADMIT Allergy & Immunology; ATTEND Allergy & Immunology
PROC: HZ2ZZZZ Detoxification Services for Substance Abuse Treatment (ICD-10-PCS; principal; 2019-08-18)
DX: F10.230 Alcohol dependence with withdrawal, uncomplicated (principal); F12.20 Cannabis dependence, uncomplicated; F17.210 Nicotine dependence, cigarettes, uncomplicated; F32.9 Major depressive disorder, single episode, unspecified; R56.1 Post traumatic seizures; R76.11 Nonspecific reaction to tuberculin skin test without active tuberculosis; Z87.820 Personal history of traumatic brain injury; Z98.890 Other specified postprocedural states; Z59.0 Homelessness; Z88.8 Allergy status to other drugs, medicaments and biological substances
CPT/HCPCS: 36415; 80053; 85027; 86780; 87389; U0003

== ENCOUNTER 2022-04-04 15:58 | Inpatient (IN) | payer OTHER ==
[2022-04-04 19:36] VITALS: BMI 20.9
[2022-04-04] MEDS ORDERED: LOPERAMIDE HCL 2 MG CAPSULE PO PRN (21:25)
[2022-04-04] MEDS ORDERED: MAG HYDROX/AL HYDROX/SIMETH 30 ML UNIT-DOSE CUP PO PRN (21:25)
[2022-04-04] MEDS ORDERED: BENZOCAINE/MENTHOL (CHLORASEPTIC ) LOZENGE MM PRN (21:25)
[2022-04-04] MEDS ORDERED: ONDANSETRON *ODT* 4 MG TABLET SL PRN (21:25)
[2022-04-04] MEDS ORDERED: NALOXONE HCL (KLOXXADO) 8 MG SPRAY NS PRN (21:25)
[2022-04-04] MEDS ORDERED: IBUPROFEN 400 MG TABLET (FP) PO PRN (21:25)
[2022-04-04] MEDS ORDERED: POLYETHYLENE GLYCOL (HEALTHYLAX) 3350 17 GM PACKET PO PRN (21:25)
[2022-04-04] MEDS ORDERED: NICOTINE POLACRILEX 2 MG GUM BUC PRN (21:25)
[2022-04-04] MEDS ORDERED: ACETAMINOPHEN 325 MG TABLET (FP) PO PRN ×2 (21:25)
[2022-04-04] MEDS ORDERED: BISMUTH SUBSALICYLATE 524 MG/30 ML PO PRN (21:25)
[2022-04-04] MEDS ORDERED: MAGNESIUM HYDROX 2400MG/30ML ORAL SUSPENSION 30 ML CUP PO PRN (21:25)
[2022-04-04] MEDS ORDERED: DICYCLOMINE HCL 10 MG CAPSULE PO PRN (21:25)
[2022-04-04] MEDS ORDERED: IBUPROFEN 600 MG TABLET (FP) PO PRN (21:25)
[2022-04-04] MEDS: METHOCARBAMOL 500 MG TABLET PO PRN (22:14)
[2022-04-04] MEDS: hydrOXYzine PAMOATE 25 MG CAPSULE (FP) PO PRN (22:14)
[2022-04-04] MEDS: THIAMINE HCL 100 MG TABLET (FP) PO SCH (22:14)
[2022-04-04] MEDS: MELATONIN 5 MG TABLETS PO SCH (22:14)
[2022-04-05] MEDS: METHOCARBAMOL 500 MG TABLET PO PRN ×2 (05:25→17:59)
[2022-04-05] MEDS: NICOTINE 21 MG/24 HOURS TOPICAL PATCH TD SCH (10:23)
[2022-04-05] MEDS: PRENATAL VITAMINS W/ FOLIC ACID TABLET (FP) PO SCH (10:25)
[2022-04-05] MEDS: levETIRAcetam 500 MG TABLET (FP) PO SCH ×2 (10:25→22:33)
[2022-04-05 10:26] LABS: HEMOGLOBIN 13.1 GM/dL (11.7-16.9); MCH 35.2 pg (25.7-33.7); MCHC 34.6 g/dl (32.0-35.9); MEAN CELL VOLUME 101.8 fl (80-96); MEAN PLT VOLUME 7.6 fl (7.5-11.1); PLATELET COUNT 272 10^3/uL (134-434); RBC 3.73 M/mm3 (4.00-5.60); RDW 13.6 % (11.9-15.9); WHITE BLOOD COUNT 5.6 K/mm3 (4.0-10.0)
[2022-04-05 10:52] LABS: BLOOD UREA NITROGEN 12.4 mg/dL (7-18); CALCIUM 8.7 mg/dL (8.5-10.1)
[2022-04-05 10:53] LABS: ALBUMIN 3.4 g/dl (3.4-5.0)
[2022-04-05 10:55] LABS: CREATININE 1.1 mg/dL (0.55-1.3)
[2022-04-05 10:56] LABS: BILIRUBIN,TOTAL 1.1 mg/dL (0.2-1); TOT PROT 6.4 g/dl (6.4-8.2)
[2022-04-05] MEDS ORDERED: chlordiazePOXIDE HCL 25 MG CAPSULE PO PRN (17:39)
[2022-04-05] MEDS: chlordiazePOXIDE HCL 25 MG CAPSULE PO SCH ×2 (18:00→22:34)
[2022-04-05] MEDS: MELATONIN 5 MG TABLETS PO SCH (22:33)
[2022-04-05] MEDS: THIAMINE HCL 100 MG TABLET (FP) PO SCH (22:33)
[2022-04-06] MEDS: chlordiazePOXIDE HCL 25 MG CAPSULE PO SCH ×4 (05:11→22:14)
[2022-04-06] MEDS: NICOTINE 21 MG/24 HOURS TOPICAL PATCH TD SCH (10:01)
[2022-04-06] MEDS: PRENATAL VITAMINS W/ FOLIC ACID TABLET (FP) PO SCH (10:02)
[2022-04-06] MEDS: levETIRAcetam 500 MG TABLET (FP) PO SCH ×2 (10:02→22:13)
[2022-04-06] MEDS: MELATONIN 5 MG TABLETS PO SCH (22:15)
[2022-04-06] MEDS: hydrOXYzine PAMOATE 25 MG CAPSULE (FP) PO PRN (22:16)
[2022-04-06] MEDS: METHOCARBAMOL 500 MG TABLET PO PRN (22:16)
[2022-04-06] MEDS: THIAMINE HCL 100 MG TABLET (FP) PO SCH (22:16)
[2022-04-07] MEDS: chlordiazePOXIDE HCL 25 MG CAPSULE PO SCH ×4 (05:48→22:05)
[2022-04-07] MEDS ORDERED: levETIRAcetam 250 MG TABLET PO ONE (09:10)
[2022-04-07] MEDS: levETIRAcetam 500 MG TABLET (FP) PO SCH ×2 (10:10→22:03)
[2022-04-07] MEDS: PRENATAL VITAMINS W/ FOLIC ACID TABLET (FP) PO SCH (10:11)
[2022-04-07] MEDS: NICOTINE 21 MG/24 HOURS TOPICAL PATCH TD SCH (10:11)
[2022-04-07] MEDS: MELATONIN 5 MG TABLETS PO SCH (22:02)
[2022-04-07] MEDS: THIAMINE HCL 100 MG TABLET (FP) PO SCH (22:02)
[2022-04-07] MEDS: NICOTINE 10 MG CARTRIDGE (INHALER) IH PRN (22:05)
[2022-04-08] MEDS ORDERED: chlordiazePOXIDE HCL 10 MG CAPSULE PO PRN
[2022-04-08] MEDS: chlordiazePOXIDE HCL 10 MG CAPSULE PO SCH ×2 (05:15→10:03)
[2022-04-08] MEDS: NICOTINE 10 MG CARTRIDGE (INHALER) IH PRN ×2 (05:16→10:03)
[2022-04-08] MEDS: levETIRAcetam 500 MG TABLET (FP) PO SCH (10:02)
[2022-04-08] MEDS: PRENATAL VITAMINS W/ FOLIC ACID TABLET (FP) PO SCH (10:02)
[2022-04-08] MEDS: NICOTINE 21 MG/24 HOURS TOPICAL PATCH TD SCH (10:05)
[2022-04-08 18:05] VITALS: BP 126/93; PULSE 100; RESP 16; TEMP 97.8
[2022-04-09] MEDS ORDERED: chlordiazePOXIDE HCL 10 MG CAPSULE PO SCH (05:00)
[2022-04-10] MEDS ORDERED: chlordiazePOXIDE HCL 10 MG CAPSULE PO ONE (05:00)
== END 2022-04-08 17:17 | disposition left against medical advice (07) | DRG 770 ==
LOC: YASAS 15:58 → Y6N 21:38
PROVIDERS: ADMIT Allergy & Immunology; ATTEND Surgery
PROC: HZ2ZZZZ Detoxification Services for Substance Abuse Treatment (ICD-10-PCS; principal; 2022-04-04)
DX: F10.230 Alcohol dependence with withdrawal, uncomplicated (principal); F12.20 Cannabis dependence, uncomplicated; F17.210 Nicotine dependence, cigarettes, uncomplicated; R56.1 Post traumatic seizures; Z87.820 Personal history of traumatic brain injury; R76.11 Nonspecific reaction to tuberculin skin test without active tuberculosis; Z28.310 Unvaccinated for COVID-19; Z28.9 Immunization not carried out for unspecified reason; Z88.8 Allergy status to other drugs, medicaments and biological substances
CPT/HCPCS: 36415; 80053; 85027; 86780; 87811; C9803-CS; U0003; U0005

== ENCOUNTER 2022-07-08 17:20 | Inpatient (IN) | payer OTHER ==
[2022-07-08 18:04] VITALS: BMI 19.6
[2022-07-08] MEDS ORDERED: guaiFENesin 600 MG TABLET.ER (FP) PO PRN (20:13)
[2022-07-08] MEDS ORDERED: LOPERAMIDE HCL 2 MG CAPSULE PO PRN (20:13)
[2022-07-08] MEDS ORDERED: IBUPROFEN 600 MG TABLET (FP) PO PRN (20:13)
[2022-07-08] MEDS ORDERED: BENZONATATE 200 MG CAPSULE PO PRN (20:13)
[2022-07-08] MEDS ORDERED: DICYCLOMINE HCL 10 MG CAPSULE PO PRN (20:13)
[2022-07-08] MEDS ORDERED: MAGNESIUM HYDROX 2400MG/30ML ORAL SUSPENSION 30 ML CUP PO PRN (20:13)
[2022-07-08] MEDS ORDERED: hydrOXYzine PAMOATE 25 MG CAPSULE (FP) PO PRN (20:13)
[2022-07-08] MEDS ORDERED: NALOXONE HCL 0.4 MG/ML VIAL IM PRN (20:13)
[2022-07-08] MEDS ORDERED: POLYETHYLENE GLYCOL (HEALTHYLAX) 3350 17 GM PACKET PO PRN (20:13)
[2022-07-08] MEDS ORDERED: NICOTINE POLACRILEX 2 MG GUM BUC PRN (20:13)
[2022-07-08] MEDS ORDERED: MAG HYDROX/AL HYDROX/SIMETH 30 ML UNIT-DOSE CUP PO PRN (20:13)
[2022-07-08] MEDS ORDERED: NALOXONE HCL (KLOXXADO) 8 MG SPRAY NS PRN (20:13)
[2022-07-08] MEDS ORDERED: BENZOCAINE/MENTHOL (CHLORASEPTIC ) LOZENGE MM PRN (20:13)
[2022-07-08] MEDS ORDERED: BISMUTH SUBSALICYLATE 524 MG/30 ML PO PRN (20:13)
[2022-07-08] MEDS ORDERED: IBUPROFEN 400 MG TABLET (FP) PO PRN (20:13)
[2022-07-08] MEDS ORDERED: ACETAMINOPHEN 325 MG TABLET (FP) PO PRN (20:13)
[2022-07-08] MEDS ORDERED: ONDANSETRON *ODT* 4 MG TABLET SL PRN (20:13)
[2022-07-08] MEDS: THIAMINE HCL 100 MG TABLET (FP) PO SCH (23:38)
[2022-07-08] MEDS: MELATONIN 5 MG TABLETS PO SCH (23:40)
[2022-07-09] MEDS: levETIRAcetam 500 MG TABLET (FP) PO SCH ×2 (05:46→17:36)
[2022-07-09] MEDS ORDERED: chlordiazePOXIDE HCL 25 MG CAPSULE PO PRN (07:42)
[2022-07-09] MEDS: chlordiazePOXIDE HCL 25 MG CAPSULE PO SCH ×3 (10:29→22:36)
[2022-07-09] MEDS: PRENATAL VITAMINS W/ FOLIC ACID TABLET (FP) PO SCH (10:29)
[2022-07-09] MEDS: NICOTINE 21 MG/24 HOURS TOPICAL PATCH TD SCH (10:30)
[2022-07-09 11:45] LABS: HEMATOCRIT 41.9 % (35.4-49); HEMOGLOBIN 14.2 GM/dL (11.7-16.9); MCH 34.1 pg (25.7-33.7); MCHC 33.7 g/dl (32.0-35.9); MEAN PLT VOLUME 8.6 fl (7.5-11.1); PLATELET COUNT 250 10^3/uL (134-434); RBC 4.15 M/mm3 (4.00-5.60); RDW 14.2 % (11.9-15.9); WHITE BLOOD COUNT 5.7 K/mm3 (4.0-10.0)
[2022-07-09 12:01] LABS: POTASSIUM 4.4 mmol/L (3.5-5.1)
[2022-07-09 12:16] LABS: CALCIUM 9.5 mg/dL (8.5-10.1)
[2022-07-09 12:17] LABS: ALBUMIN 3.4 g/dl (3.4-5.0); BLOOD UREA NITROGEN 6.9 mg/dL (7-18)
[2022-07-09 12:20] LABS: CREATININE 0.9 mg/dL (0.55-1.3)
[2022-07-09 12:21] LABS: BILIRUBIN,TOTAL 0.9 mg/dL (0.2-1); TOT PROT 6.6 g/dl (6.4-8.2)
[2022-07-09] MEDS: MELATONIN 5 MG TABLETS PO SCH (22:36)
[2022-07-09] MEDS: THIAMINE HCL 100 MG TABLET (FP) PO SCH (22:36)
[2022-07-10] MEDS: levETIRAcetam 500 MG TABLET (FP) PO SCH ×2 (05:44→17:43)
[2022-07-10] MEDS: chlordiazePOXIDE HCL 25 MG CAPSULE PO SCH ×4 (05:44→22:51)
[2022-07-10] MEDS: PRENATAL VITAMINS W/ FOLIC ACID TABLET (FP) PO SCH (10:33)
[2022-07-10] MEDS: NICOTINE 21 MG/24 HOURS TOPICAL PATCH TD SCH (10:33)
[2022-07-10] MEDS: MELATONIN 5 MG TABLETS PO SCH (22:50)
[2022-07-10] MEDS: METHOCARBAMOL 500 MG TABLET PO PRN (22:50)
[2022-07-10] MEDS: THIAMINE HCL 100 MG TABLET (FP) PO SCH (22:51)
[2022-07-11] MEDS: chlordiazePOXIDE HCL 25 MG CAPSULE PO SCH ×4 (05:36→22:39)
[2022-07-11] MEDS: levETIRAcetam 500 MG TABLET (FP) PO SCH ×2 (05:36→17:42)
[2022-07-11] MEDS ORDERED: BACITRACIN ZINC 15 GM TUBE TOPICAL OINTMENT TP SCH (10:45)
[2022-07-11] MEDS: NICOTINE 21 MG/24 HOURS TOPICAL PATCH TD SCH (10:46)
[2022-07-11] MEDS: PRENATAL VITAMINS W/ FOLIC ACID TABLET (FP) PO SCH (10:46)
[2022-07-11] MEDS: THIAMINE HCL 100 MG TABLET (FP) PO SCH (22:39)
[2022-07-11] MEDS: MELATONIN 5 MG TABLETS PO SCH (22:39)
[2022-07-11] MEDS: METHOCARBAMOL 500 MG TABLET PO PRN (22:39)
[2022-07-12] MEDS ORDERED: chlordiazePOXIDE HCL 10 MG CAPSULE PO PRN
[2022-07-12] MEDS ORDERED: chlordiazePOXIDE HCL 10 MG CAPSULE PO SCH (05:00)
[2022-07-12] MEDS: levETIRAcetam 500 MG TABLET (FP) PO SCH (05:36)
[2022-07-12 06:32] VITALS: RESP 16
[2022-07-12] MEDS: NICOTINE 21 MG/24 HOURS TOPICAL PATCH TD SCH (09:16)
[2022-07-12] MEDS: PRENATAL VITAMINS W/ FOLIC ACID TABLET (FP) PO SCH (09:16)
[2022-07-12 09:19] VITALS: BP 119/87; PULSE 80; TEMP 97.1
[2022-07-13] MEDS ORDERED: chlordiazePOXIDE HCL 10 MG CAPSULE PO SCH (05:00)
[2022-07-14] MEDS ORDERED: chlordiazePOXIDE HCL 10 MG CAPSULE PO ONE (05:00)
== END 2022-07-12 09:42 | disposition home or self-care (01) | DRG 775 ==
LOC: YASAS 17:20 → Y3N 23:02
PROVIDERS: ADMIT Allergy & Immunology; ATTEND Surgery
PROC: HZ2ZZZZ Detoxification Services for Substance Abuse Treatment (ICD-10-PCS; principal; 2022-07-08)
DX: F10.230 Alcohol dependence with withdrawal, uncomplicated (principal); F12.20 Cannabis dependence, uncomplicated; F17.210 Nicotine dependence, cigarettes, uncomplicated; F39 Unspecified mood [affective] disorder; F19.24 Other psychoactive substance dependence with psychoactive substance-induced mood disorder; R56.1 Post traumatic seizures; Z87.820 Personal history of traumatic brain injury; Z88.8 Allergy status to other drugs, medicaments and biological substances
CPT/HCPCS: 36415; 80053; 85027; 86780; C9803-CS; U0003; U0005

== ENCOUNTER 2023-04-07 16:29 | Inpatient (IN) | payer OTHER ==
[2023-04-07 17:08] VITALS: BMI 18.7
[2023-04-07] MEDS ORDERED: MAG HYDROX/AL HYDROX/SIMETH 30 ML UNIT-DOSE CUP PO PRN (19:59)
[2023-04-07] MEDS ORDERED: NALOXONE HCL (KLOXXADO) 8 MG SPRAY NS PRN (19:59)
[2023-04-07] MEDS ORDERED: NICOTINE POLACRILEX 2 MG GUM BUC PRN (19:59)
[2023-04-07] MEDS ORDERED: BENZOCAINE/MENTHOL (CHLORASEPTIC ) LOZENGE MM PRN (19:59)
[2023-04-07] MEDS ORDERED: IBUPROFEN 400 MG TABLET (FP) PO PRN (19:59)
[2023-04-07] MEDS ORDERED: MAGNESIUM HYDROX 2400MG/30ML ORAL SUSPENSION 30 ML CUP PO PRN (19:59)
[2023-04-07] MEDS ORDERED: BENZONATATE 200 MG CAPSULE PO PRN (19:59)
[2023-04-07] MEDS ORDERED: BISMUTH SUBSALICYLATE 524 MG/30 ML PO PRN (19:59)
[2023-04-07] MEDS ORDERED: IBUPROFEN 600 MG TABLET (FP) PO PRN (19:59)
[2023-04-07] MEDS ORDERED: ACETAMINOPHEN 325 MG TABLET (FP) PO PRN (19:59)
[2023-04-07] MEDS ORDERED: guaiFENesin 600 MG TABLET.ER (FP) PO PRN (19:59)
[2023-04-07] MEDS ORDERED: DICYCLOMINE HCL 10 MG CAPSULE PO PRN (19:59)
[2023-04-07] MEDS ORDERED: ONDANSETRON *ODT* 4 MG TABLET SL PRN (19:59)
[2023-04-07] MEDS ORDERED: POLYETHYLENE GLYCOL (HEALTHYLAX) 3350 17 GM PACKET PO PRN (19:59)
[2023-04-07] MEDS ORDERED: NALOXONE HCL 0.4 MG/ML VIAL IM PRN (19:59)
[2023-04-07] MEDS ORDERED: LOPERAMIDE HCL 2 MG CAPSULE PO PRN (19:59)
[2023-04-07] MEDS: MELATONIN 5 MG TABLETS PO SCH (21:42)
[2023-04-07] MEDS: THIAMINE HCL 100 MG TABLET (FP) PO SCH (21:43)
[2023-04-08] MEDS: levETIRAcetam 500 MG TABLET (FP) PO SCH (06:23)
[2023-04-08] MEDS ORDERED: levETIRAcetam 500 MG TABLET (FP) PO SCH (10:00)
[2023-04-08 10:39] LABS: HEMATOCRIT 38.1 % (35.4-49); HEMOGLOBIN 13.1 GM/dL (11.7-16.9); MCH 37.1 pg (25.7-33.7); MCHC 34.5 g/dl (32.0-35.9); MEAN CELL VOLUME 107.8 fl (80-96); MEAN PLT VOLUME 7.7 fl (7.5-11.1); PLATELET COUNT 393 10^3/uL (134-434); RBC 3.54 M/mm3 (4.00-5.60); RDW 13.1 % (11.9-15.9); WHITE BLOOD COUNT 6.1 K/mm3 (4.0-10.0)
[2023-04-08] MEDS: PRENATAL VITAMINS W/ FOLIC ACID TABLET (FP) PO SCH (10:45)
[2023-04-08] MEDS: NICOTINE 21 MG/24 HOURS TOPICAL PATCH TD SCH (10:45)
[2023-04-08] MEDS ORDERED: chlordiazePOXIDE HCL 25 MG CAPSULE PO PRN (10:46)
[2023-04-08] MEDS ORDERED: diazePAM 5 MG TABLET PO PRN (10:46)
[2023-04-08] MEDS ORDERED: diazePAM 5 MG TABLET PO SCH (11:00)
[2023-04-08] MEDS: chlordiazePOXIDE HCL 25 MG CAPSULE PO SCH (11:52)
[2023-04-08 13:03] LABS: CHLORIDE 106 mmol/L (98-107); POTASSIUM 4.2 mmol/L (3.5-5.1); SODIUM 141 mmol/L (136-145)
[2023-04-08 13:11] LABS: CALCIUM 8.6 mg/dL (8.5-10.1); GLUCOSE,RANDOM 107 mg/dL (74-106)
[2023-04-08 13:12] LABS: ALBUMIN 3.1 g/dl (3.4-5.0); ANION GAP 5 mmol/L (4-13); BLOOD UREA NITROGEN 11.3 mg/dL (7-18); CO2 30 mmol/L (21-32)
[2023-04-08 13:14] LABS: CREATININE 0.9 mg/dL (0.55-1.3); SGOT/AST 48 U/L (15-37); SGPT/ALT 38 U/L (13-61)
[2023-04-08 13:16] LABS: BILIRUBIN,TOTAL 0.4 mg/dL (0.2-1); TOT PROT 6.2 g/dl (6.4-8.2)
[2023-04-08 13:17] LABS: ALK PHOS 95 U/L (45-117)
[2023-04-09] MEDS: METHOCARBAMOL 500 MG TABLET PO PRN (10:15)
[2023-04-10] MEDS: chlordiazePOXIDE HCL 25 MG CAPSULE PO SCH (05:33)
[2023-04-10] MEDS ORDERED: diazePAM 5 MG TABLET PO SCH (06:00)
[2023-04-10 15:13] VITALS: RESP 16
[2023-04-11] MEDS ORDERED: chlordiazePOXIDE HCL 10 MG CAPSULE PO PRN
[2023-04-11] MEDS: chlordiazePOXIDE HCL 10 MG CAPSULE PO SCH (05:47)
[2023-04-11] MEDS ORDERED: diazePAM 5 MG TABLET PO SCH (06:00)
[2023-04-11 07:08] VITALS: BP 127/87; PULSE 68; TEMP 97.6
[2023-04-12] MEDS ORDERED: chlordiazePOXIDE HCL 10 MG CAPSULE PO SCH (05:00)
[2023-04-12] MEDS ORDERED: diazePAM 5 MG TABLET PO ONE (06:00)
[2023-04-13] MEDS ORDERED: chlordiazePOXIDE HCL 10 MG CAPSULE PO ONE (05:00)
== END 2023-04-11 07:25 | disposition home or self-care (01) | DRG 775 ==
LOC: YASAS 16:29 → Y6N 20:21
PROVIDERS: ADMIT Allergy & Immunology; ATTEND Surgery
PROC: HZ2ZZZZ Detoxification Services for Substance Abuse Treatment (ICD-10-PCS; principal; 2023-04-07)
DX: F10.230 Alcohol dependence with withdrawal, uncomplicated (principal); F17.210 Nicotine dependence, cigarettes, uncomplicated; F33.1 Major depressive disorder, recurrent, moderate; F41.9 Anxiety disorder, unspecified; F32.A Depression, unspecified; G40.909 Epilepsy, unspecified, not intractable, without status epilepticus; R76.11 Nonspecific reaction to tuberculin skin test without active tuberculosis; Z28.310 Unvaccinated for COVID-19; Z28.9 Immunization not carried out for unspecified reason; Z88.8 Allergy status to other drugs, medicaments and biological substances
CPT/HCPCS: 36415; 71046-TC-FY; 80053; 80305; 80307; 85027; 86780; 87635; 93005; 93010

== ENCOUNTER 2023-06-22 13:41 | Inpatient (IN) | payer OTHER ==
[2023-06-22 14:11] VITALS: BMI 18.7
[2023-06-22] MEDS ORDERED: ACETAMINOPHEN 325 MG TABLET (FP) PO PRN (15:06)
[2023-06-22] MEDS ORDERED: IBUPROFEN 400 MG TABLET (FP) PO PRN (15:06)
[2023-06-22] MEDS ORDERED: DICYCLOMINE HCL 10 MG CAPSULE PO PRN (15:06)
[2023-06-22] MEDS ORDERED: guaiFENesin 600 MG TABLET.ER (FP) PO PRN (15:06)
[2023-06-22] MEDS ORDERED: ONDANSETRON *ODT* 4 MG TABLET SL PRN (15:06)
[2023-06-22] MEDS ORDERED: IBUPROFEN 600 MG TABLET (FP) PO PRN (15:06)
[2023-06-22] MEDS ORDERED: BENZONATATE 200 MG CAPSULE PO PRN (15:06)
[2023-06-22] MEDS ORDERED: BISMUTH SUBSALICYLATE 524 MG/30 ML PO PRN (15:06)
[2023-06-22] MEDS ORDERED: BENZOCAINE/MENTHOL (CHLORASEPTIC ) LOZENGE MM PRN (15:06)
[2023-06-22] MEDS ORDERED: MAG HYDROX/AL HYDROX/SIMETH 30 ML UNIT-DOSE CUP PO PRN (15:06)
[2023-06-22] MEDS ORDERED: NICOTINE POLACRILEX 2 MG LOZENGE BC PRN (15:06)
[2023-06-22] MEDS ORDERED: MAGNESIUM HYDROX 2400MG/30ML ORAL SUSPENSION 30 ML CUP PO PRN (15:06)
[2023-06-22] MEDS ORDERED: POLYETHYLENE GLYCOL (HEALTHYLAX) 3350 17 GM PACKET PO PRN (15:06)
[2023-06-22] MEDS ORDERED: LOPERAMIDE HCL 2 MG CAPSULE PO PRN (15:06)
[2023-06-22] MEDS ORDERED: NICOTINE POLACRILEX 2 MG GUM BUC PRN (15:06)
[2023-06-22] MEDS: levETIRAcetam 500 MG TABLET (FP) PO SCH (17:22)
[2023-06-22] MEDS: hydrOXYzine PAMOATE 25 MG CAPSULE (FP) PO PRN (22:50)
[2023-06-22] MEDS: MELATONIN 5 MG TABLETS PO SCH (22:50)
[2023-06-22] MEDS: THIAMINE 100 MG TABLET PO SCH (22:50)
[2023-06-23] MEDS ORDERED: chlordiazePOXIDE HCL 25 MG CAPSULE PO PRN (09:37)
[2023-06-23] MEDS: PRENATAL VITAMINS W/ FOLIC ACID TABLET (FP) PO SCH (10:44)
[2023-06-23] MEDS: chlordiazePOXIDE HCL 25 MG CAPSULE PO SCH (10:46)
[2023-06-23 11:52] LABS: POTASSIUM 4.5 mmol/L (3.5-5.1)
[2023-06-23 11:53] LABS: HEMATOCRIT 45.6 % (35.4-49); HEMOGLOBIN 15.4 GM/dL (11.7-16.9); MCH 34.8 pg (25.7-33.7); MCHC 33.7 g/dl (32.0-35.9); MEAN CELL VOLUME 103.1 fl (80-96); MEAN PLT VOLUME 8.3 fl (7.5-11.1); PLATELET COUNT 271 10^3/uL (134-434); RBC 4.42 M/mm3 (4.00-5.60)
[2023-06-23 12:16] LABS: ALBUMIN 3.8 g/dl (3.4-5.0)
[2023-06-23 12:17] LABS: BLOOD UREA NITROGEN 8.6 mg/dL (7-18); CALCIUM 9.6 mg/dL (8.5-10.1)
[2023-06-23 12:21] LABS: BILIRUBIN,TOTAL 1.2 mg/dL (0.2-1); TOT PROT 7.1 g/dl (6.4-8.2)
[2023-06-24] MEDS: chlordiazePOXIDE HCL 25 MG CAPSULE PO SCH (05:21)
[2023-06-24 09:44] VITALS: BP 143/93; PULSE 78; RESP 16; TEMP 98
[2023-06-25] MEDS ORDERED: chlordiazePOXIDE HCL 10 MG CAPSULE PO PRN
[2023-06-25] MEDS ORDERED: chlordiazePOXIDE HCL 10 MG CAPSULE PO SCH (05:00)
[2023-06-26] MEDS ORDERED: chlordiazePOXIDE HCL 10 MG CAPSULE PO SCH (05:00)
[2023-06-27] MEDS ORDERED: chlordiazePOXIDE HCL 10 MG CAPSULE PO ONE (05:00)
== END 2023-06-24 09:43 | disposition left against medical advice (07) | DRG 770 ==
LOC: YASAS 13:41 → Y6N 15:21
PROVIDERS: ADMIT Allergy & Immunology; ATTEND Surgery
PROC: HZ2ZZZZ Detoxification Services for Substance Abuse Treatment (ICD-10-PCS; principal; 2023-06-22)
DX: F10.230 Alcohol dependence with withdrawal, uncomplicated (principal); F16.20 Hallucinogen dependence, uncomplicated; F17.210 Nicotine dependence, cigarettes, uncomplicated; G40.909 Epilepsy, unspecified, not intractable, without status epilepticus; R76.11 Nonspecific reaction to tuberculin skin test without active tuberculosis; Z87.820 Personal history of traumatic brain injury; Z28.310 Unvaccinated for COVID-19; Z28.9 Immunization not carried out for unspecified reason; Z88.8 Allergy status to other drugs, medicaments and biological substances
CPT/HCPCS: 36415; 80053; 80305; 80307; 85027; 86780

== ENCOUNTER 2023-09-02 13:00 | Inpatient (IN) | payer OTHER ==
[2023-09-02 14:14] VITALS: BMI 19.5
[2023-09-02] MEDS ORDERED: ONDANSETRON *ODT* 4 MG TABLET SL PRN (16:25)
[2023-09-02] MEDS ORDERED: guaiFENesin 600 MG TABLET.ER (FP) PO PRN (16:25)
[2023-09-02] MEDS ORDERED: chlordiazePOXIDE HCL 25 MG CAPSULE PO PRN (16:25)
[2023-09-02] MEDS ORDERED: NALOXONE HCL 0.4 MG/ML VIAL IM PRN (16:25)
[2023-09-02] MEDS ORDERED: POLYETHYLENE GLYCOL (HEALTHYLAX) 3350 17 GM PACKET PO PRN (16:25)
[2023-09-02] MEDS ORDERED: LOPERAMIDE HCL 2 MG CAPSULE PO PRN (16:25)
[2023-09-02] MEDS ORDERED: IBUPROFEN 400 MG TABLET (FP) PO PRN (16:25)
[2023-09-02] MEDS ORDERED: hydrOXYzine PAMOATE 25 MG CAPSULE (FP) PO PRN (16:25)
[2023-09-02] MEDS ORDERED: BENZONATATE 200 MG CAPSULE PO PRN (16:25)
[2023-09-02] MEDS ORDERED: MAG HYDROX/AL HYDROX/SIMETH 30 ML UNIT-DOSE CUP PO PRN (16:25)
[2023-09-02] MEDS ORDERED: MAGNESIUM HYDROX 2400MG/30ML ORAL SUSPENSION 30 ML CUP PO PRN (16:25)
[2023-09-02] MEDS ORDERED: IBUPROFEN 600 MG TABLET (FP) PO PRN (16:25)
[2023-09-02] MEDS ORDERED: BISMUTH SUBSALICYLATE 524 MG/30 ML PO PRN (16:25)
[2023-09-02] MEDS ORDERED: METHOCARBAMOL 500 MG TABLET PO PRN (16:25)
[2023-09-02] MEDS ORDERED: DICYCLOMINE HCL 10 MG CAPSULE PO PRN (16:25)
[2023-09-02] MEDS ORDERED: NALOXONE (NARCAN) HCL 4 MG/0.1 ML SPRAY NS PRN (16:25)
[2023-09-02] MEDS ORDERED: BENZOCAINE/MENTHOL (CHLORASEPTIC ) LOZENGE MM PRN (16:25)
[2023-09-02] MEDS ORDERED: ACETAMINOPHEN 325 MG TABLET (FP) PO PRN (16:25)
[2023-09-02] MEDS: PRENATAL VITAMINS W/ FOLIC ACID TABLET (FP) PO SCH (19:52)
[2023-09-02] MEDS: NICOTINE 14 MG/24 HOURS TOPICAL PATCH TD SCH (19:52)
[2023-09-02] MEDS: chlordiazePOXIDE HCL 25 MG CAPSULE PO SCH (22:22)
[2023-09-02] MEDS: THIAMINE 100 MG TABLET PO SCH (22:23)
[2023-09-02] MEDS: levETIRAcetam 500 MG TABLET (FP) PO SCH (22:42)
[2023-09-02] MEDS: MELATONIN 5 MG TABLETS PO SCH (22:43)
[2023-09-03 11:38] LABS: HEMATOCRIT 37.2 % (35.4-49); HEMOGLOBIN 12.8 GM/dL (11.7-16.9); MCH 34.7 pg (25.7-33.7); MCHC 34.3 g/dl (32.0-35.9); MEAN CELL VOLUME 101.1 fl (80-96); MEAN PLT VOLUME 8.3 fl (7.5-11.1); PLATELET COUNT 203 10^3/uL (134-434); RBC 3.68 M/mm3 (4.00-5.60); RDW 14.4 % (11.9-15.9)
[2023-09-03 11:54] LABS: CHLORIDE 106 mmol/L (98-107); POTASSIUM 3.9 mmol/L (3.5-5.1); SODIUM 142 mmol/L (136-145)
[2023-09-03 12:26] LABS: ALBUMIN 3.1 g/dl (3.4-5.0); ANION GAP 6 mmol/L (4-13); CALCIUM 8.6 mg/dL (8.5-10.1); CO2 30 mmol/L (21-32); GLUCOSE,RANDOM 100 mg/dL (74-106)
[2023-09-03 12:29] LABS: CREATININE 0.8 mg/dL (0.55-1.3); SGPT/ALT 63 U/L (13-61)
[2023-09-03 12:30] LABS: BILIRUBIN,TOTAL 0.7 mg/dL (0.2-1); SGOT/AST 78 U/L (15-37)
[2023-09-03 12:32] LABS: ALK PHOS 117 U/L (45-117); TOT PROT 6.1 g/dl (6.4-8.2)
[2023-09-04] MEDS: chlordiazePOXIDE HCL 25 MG CAPSULE PO SCH (05:45)
[2023-09-05] MEDS ORDERED: chlordiazePOXIDE HCL 10 MG CAPSULE PO PRN
[2023-09-05] MEDS: chlordiazePOXIDE HCL 10 MG CAPSULE PO SCH (06:00)
[2023-09-06] MEDS: chlordiazePOXIDE HCL 10 MG CAPSULE PO SCH (05:47)
[2023-09-07] MEDS: chlordiazePOXIDE HCL 10 MG CAPSULE PO ONE (05:49)
[2023-09-07 09:22] VITALS: BP 126/84; PULSE 75; RESP 18; TEMP 97.3
== END 2023-09-07 09:42 | disposition home or self-care (01) | DRG 775 ==
LOC: YASAS 13:00 → Y6N 18:01
PROVIDERS: ADMIT Allergy & Immunology; ATTEND Family Medicine Addiction Medicine
PROC: HZ2ZZZZ Detoxification Services for Substance Abuse Treatment (ICD-10-PCS; principal; 2023-09-02)
DX: F10.230 Alcohol dependence with withdrawal, uncomplicated (principal); F12.20 Cannabis dependence, uncomplicated; F17.213 Nicotine dependence, cigarettes, with withdrawal; F19.282 Other psychoactive substance dependence with psychoactive substance-induced sleep disorder; F19.280 Other psychoactive substance dependence with psychoactive substance-induced anxiety disorder; F41.9 Anxiety disorder, unspecified; G62.9 Polyneuropathy, unspecified; R56.1 Post traumatic seizures; Z87.820 Personal history of traumatic brain injury; Z86.11 Personal history of tuberculosis; Z88.8 Allergy status to other drugs, medicaments and biological substances
CPT/HCPCS: 36415; 80053; 80305; 80307; 85027; 86780

== ENCOUNTER 2024-01-13 12:50 | Inpatient (IN) | payer OTHER ==
[2024-01-13 13:42] VITALS: BMI 20.2
[2024-01-13] MEDS ORDERED: BISMUTH SUBSALICYLATE 262 MG/15 ML BTL PO PRN (14:13)
[2024-01-13] MEDS ORDERED: POLYETHYLENE GLYCOL (HEALTHYLAX) 3350 17 GM PACKET PO PRN (14:13)
[2024-01-13] MEDS ORDERED: MAG HYDROX/AL HYDROX/SIMETH 30 ML UNIT-DOSE CUP PO PRN (14:13)
[2024-01-13] MEDS ORDERED: NALOXONE (NARCAN) HCL 4 MG/0.1 ML SPRAY NS PRN (14:13)
[2024-01-13] MEDS ORDERED: MAGNESIUM HYDROX 2400MG/30ML ORAL SUSPENSION 30 ML CUP PO PRN (14:13)
[2024-01-13] MEDS ORDERED: LOPERAMIDE HCL 2 MG CAPSULE PO PRN (14:13)
[2024-01-13] MEDS ORDERED: hydrOXYzine PAMOATE 25 MG CAPSULE (FP) PO PRN (14:13)
[2024-01-13] MEDS ORDERED: DICYCLOMINE HCL 10 MG CAPSULE PO PRN (14:13)
[2024-01-13] MEDS ORDERED: NICOTINE POLACRILEX 2 MG LOZENGE BC PRN (14:13)
[2024-01-13] MEDS ORDERED: ACETAMINOPHEN 325 MG TABLET (FP) PO PRN (14:13)
[2024-01-13] MEDS ORDERED: ONDANSETRON *ODT* 4 MG TABLET SL PRN (14:13)
[2024-01-13] MEDS ORDERED: BENZOCAINE/MENTHOL (CHLORASEPTIC ) LOZENGE MM PRN (14:13)
[2024-01-13] MEDS ORDERED: IBUPROFEN 600 MG TABLET (FP) PO PRN (14:13)
[2024-01-13] MEDS ORDERED: chlordiazePOXIDE HCL 25 MG CAPSULE PO PRN (14:13)
[2024-01-13] MEDS ORDERED: guaiFENesin 600 MG TABLET.ER (FP) PO PRN (14:13)
[2024-01-13] MEDS ORDERED: BENZONATATE 200 MG CAPSULE PO PRN (14:13)
[2024-01-13] MEDS ORDERED: METHOCARBAMOL 500 MG TABLET PO PRN (14:13)
[2024-01-13] MEDS ORDERED: IBUPROFEN 400 MG TABLET (FP) PO PRN (14:13)
[2024-01-13] MEDS: MELATONIN 5 MG TABLETS PO SCH (22:27)
[2024-01-13] MEDS: THIAMINE 100 MG TABLET PO SCH (22:27)
[2024-01-13] MEDS: chlordiazePOXIDE HCL 25 MG CAPSULE PO SCH (22:30)
[2024-01-13] MEDS: levETIRAcetam XR 750 MG TAB PO SCH (22:52)
[2024-01-14] MEDS: levETIRAcetam XR 750 MG TAB PO SCH (05:30)
[2024-01-14] MEDS: PRENATAL VITAMINS W/ FOLIC ACID TABLET (FP) PO SCH (10:28)
[2024-01-14 11:14] LABS: CHLORIDE 105 mmol/L (98-107); POTASSIUM 4.8 mmol/L (3.5-5.1); SODIUM 142 mmol/L (136-145)
[2024-01-14 11:15] LABS: HEMATOCRIT 45.6 % (35.4-49); HEMOGLOBIN 14.7 GM/dL (11.7-16.9); MCH 33.8 pg (25.7-33.7); MCHC 32.2 g/dl (32.0-35.9); MEAN CELL VOLUME 105.1 fl (80-96); MEAN PLT VOLUME 8.2 fl (7.5-11.1); PLATELET COUNT 303 10^3/uL (134-434); RBC 4.34 M/mm3 (4.00-5.60); RDW 13.9 % (11.9-15.9); WHITE BLOOD COUNT 5.1 K/mm3 (4.0-10.0)
[2024-01-14 11:20] LABS: ALBUMIN 3.6 g/dl (3.4-5.0); ANION GAP 7 mmol/L (4-13); BLOOD UREA NITROGEN 13.7 mg/dL (7-18); CALCIUM 9.8 mg/dL (8.5-10.1); CO2 30 mmol/L (21-32)
[2024-01-14 11:21] LABS: GLUCOSE,RANDOM 101 mg/dL (74-106)
[2024-01-14 11:22] LABS: SGPT/ALT 41 U/L (13-61)
[2024-01-14 11:24] LABS: SGOT/AST 39 U/L (15-37)
[2024-01-14 11:25] LABS: BILIRUBIN,TOTAL 0.8 mg/dL (0.2-1)
[2024-01-14 11:26] LABS: ALK PHOS 55 U/L (45-117)
[2024-01-14] MEDS: NICOTINE POLACRILEX 2 MG GUM BUC PRN (17:40)
[2024-01-15] MEDS: chlordiazePOXIDE HCL 25 MG CAPSULE PO SCH (05:43)
[2024-01-15 06:49] VITALS: RESP 16
[2024-01-15] MEDS: NALOXONE (NYS OPIOID OVERDOSE PROGRAM) 4 MG/0.1 ML SPRAY NS SCH (10:45)
[2024-01-15 11:47] VITALS: BP 124/78; PULSE 70; TEMP 98.1
[2024-01-16] MEDS ORDERED: chlordiazePOXIDE HCL 10 MG CAPSULE PO PRN
[2024-01-16] MEDS ORDERED: chlordiazePOXIDE HCL 10 MG CAPSULE PO SCH (05:00)
[2024-01-17] MEDS ORDERED: chlordiazePOXIDE HCL 10 MG CAPSULE PO SCH (05:00)
[2024-01-18] MEDS ORDERED: chlordiazePOXIDE HCL 10 MG CAPSULE PO ONE (05:00)
== END 2024-01-15 11:03 | disposition left against medical advice (07) | DRG 770 ==
LOC: YASAS 12:50 → Y6N 16:54
PROVIDERS: ADMIT Allergy & Immunology; ATTEND Surgery
PROC: HZ2ZZZZ Detoxification Services for Substance Abuse Treatment (ICD-10-PCS; principal; 2024-01-13)
DX: F10.230 Alcohol dependence with withdrawal, uncomplicated (principal); F12.20 Cannabis dependence, uncomplicated; F17.213 Nicotine dependence, cigarettes, with withdrawal; F19.24 Other psychoactive substance dependence with psychoactive substance-induced mood disorder; R56.1 Post traumatic seizures; R63.6 Underweight; Z68.20 Body mass index [BMI] 20.0-20.9, adult; Z87.820 Personal history of traumatic brain injury; Z59.01 Sheltered homelessness; Z88.8 Allergy status to other drugs, medicaments and biological substances
CPT/HCPCS: 36415; 80053; 80305; 80307; 85027; 86780; 93005; 93010

== ENCOUNTER 2024-06-06 14:00 | Inpatient (IN) | payer OTHER ==
[2024-06-06] MEDS ORDERED: IBUPROFEN 600 MG TABLET (FP) PO PRN (14:37)
[2024-06-06] MEDS ORDERED: NALOXONE (NARCAN) HCL 4 MG/0.1 ML SPRAY NS PRN (14:37)
[2024-06-06] MEDS ORDERED: LOPERAMIDE HCL 2 MG CAPSULE PO PRN (14:37)
[2024-06-06] MEDS ORDERED: ONDANSETRON *ODT* 4 MG TABLET SL PRN (14:37)
[2024-06-06] MEDS ORDERED: IBUPROFEN 400 MG TABLET (FP) PO PRN (14:37)
[2024-06-06] MEDS ORDERED: POLYETHYLENE GLYCOL (HEALTHYLAX) 3350 17 GM PACKET PO PRN (14:37)
[2024-06-06] MEDS ORDERED: guaiFENesin 600 MG TABLET.ER (FP) PO PRN (14:37)
[2024-06-06] MEDS ORDERED: NICOTINE POLACRILEX 2 MG GUM BUC PRN (14:37)
[2024-06-06] MEDS ORDERED: BISMUTH SUBSALICYLATE 524 MG/30 ML PO PRN (14:37)
[2024-06-06] MEDS ORDERED: DICYCLOMINE HCL 10 MG CAPSULE PO PRN (14:37)
[2024-06-06] MEDS ORDERED: BENZOCAINE/MENTHOL (CHLORASEPTIC ) LOZENGE MM PRN (14:37)
[2024-06-06] MEDS ORDERED: MAGNESIUM HYDROX 2400MG/30ML ORAL SUSPENSION 30 ML CUP PO PRN (14:37)
[2024-06-06] MEDS ORDERED: BENZONATATE 200 MG CAPSULE PO PRN (14:37)
[2024-06-06] MEDS ORDERED: MAG HYDROX/AL HYDROX/SIMETH 30 ML UNIT-DOSE CUP PO PRN (14:37)
[2024-06-06] MEDS: NALTREXONE HCL 50 MG TABLET PO ONE (17:19)
[2024-06-06] MEDS: THIAMINE 100 MG TABLET PO SCH (22:14)
[2024-06-06] MEDS: MELATONIN 5 MG TABLETS PO SCH (22:14)
[2024-06-06] MEDS: levETIRAcetam XR 750 MG TAB PO SCH (23:50)
[2024-06-07] MEDS ORDERED: LORazepam 2 MG/ML SDV VIAL ONE (00:53)
[2024-06-07] MEDS ORDERED: chlordiazePOXIDE HCL 10 MG CAPSULE PO PRN (08:20)
[2024-06-07] MEDS ORDERED: chlordiazePOXIDE HCL 25 MG CAPSULE PO PRN (08:51)
[2024-06-07] MEDS: chlordiazePOXIDE HCL 25 MG CAPSULE PO SCH ×2 (09:24→11:40)
[2024-06-07] MEDS: NALTREXONE HCL 50 MG TABLET PO SCH (09:28)
[2024-06-07] MEDS: PRENATAL VITAMINS W/ FOLIC ACID TABLET (FP) PO SCH (09:29)
[2024-06-07] MEDS: levETIRAcetam XR 750 MG TAB PO SCH (09:36)
[2024-06-07 11:35] LABS: HEMATOCRIT 39.1 % (40.1-51.0); HEMOGLOBIN 13.2 g/dL (13.7-17.5); MCHC 33.8 g/dl (32.3-36.5); MEAN CELL VOLUME 100.3 fl (79.0-92.2); MEAN PLT VOLUME 10.1 fl (9.4-12.4); PLATELET COUNT 240 x10^3/uL (163-337); RDW 14.2 % (12.1-15.9)
[2024-06-07 11:40] LABS: POTASSIUM 3.9 mmol/L (3.5-5.1)
[2024-06-07 11:48] LABS: ALBUMIN 3.6 g/dl (3.4-5.0); BLOOD UREA NITROGEN 13.3 mg/dL (7-18); CALCIUM 8.8 mg/dL (8.5-10.1)
[2024-06-07 11:50] LABS: BILIRUBIN,TOTAL 0.5 mg/dL (0.2-1)
[2024-06-07 11:51] LABS: TOT PROT 6.7 g/dl (6.4-8.2)
[2024-06-07 11:52] LABS: CREATININE 0.9 mg/dL (0.55-1.3)
[2024-06-07] MEDS: METHOCARBAMOL 500 MG TABLET PO PRN (22:23)
[2024-06-07] MEDS: ACETAMINOPHEN 325 MG TABLET (FP) PO PRN (22:24)
[2024-06-08] MEDS ORDERED: chlordiazePOXIDE HCL 10 MG CAPSULE PO SCH (05:00)
[2024-06-09] MEDS ORDERED: chlordiazePOXIDE HCL 10 MG CAPSULE PO ONE (05:00)
[2024-06-09] MEDS: chlordiazePOXIDE HCL 25 MG CAPSULE PO SCH (05:42)
[2024-06-10] MEDS ORDERED: chlordiazePOXIDE HCL 10 MG CAPSULE PO PRN
[2024-06-10] MEDS: chlordiazePOXIDE HCL 10 MG CAPSULE PO SCH (05:34)
[2024-06-11] MEDS: chlordiazePOXIDE HCL 10 MG CAPSULE PO SCH (05:21)
[2024-06-11] MEDS: hydrOXYzine PAMOATE 25 MG CAPSULE (FP) PO PRN (21:47)
[2024-06-12] MEDS: chlordiazePOXIDE HCL 10 MG CAPSULE PO ONE (05:34)
[2024-06-12 08:38] VITALS: BP 124/69; PULSE 69; RESP 18; TEMP 98.3
== END 2024-06-12 09:52 | disposition home or self-care (01) | DRG 775 ==
LOC: YASAS 14:00 → Y3N 15:01
PROVIDERS: ADMIT Allergy & Immunology; ATTEND Allergy & Immunology
PROC: HZ2ZZZZ Detoxification Services for Substance Abuse Treatment (ICD-10-PCS; principal; 2024-06-06)
DX: F10.230 Alcohol dependence with withdrawal, uncomplicated (principal); F12.20 Cannabis dependence, uncomplicated; F17.210 Nicotine dependence, cigarettes, uncomplicated; F19.282 Other psychoactive substance dependence with psychoactive substance-induced sleep disorder; F39 Unspecified mood [affective] disorder; F43.10 Post-traumatic stress disorder, unspecified; F41.9 Anxiety disorder, unspecified; R56.1 Post traumatic seizures; W06.XXXA Fall from bed, initial encounter; Y92.230 Patient room in hospital as the place of occurrence of the external cause; Z87.820 Personal history of traumatic brain injury; Z88.8 Allergy status to other drugs, medicaments and biological substances
CPT/HCPCS: 36415; 80053; 80177; 80305; 80307; 82962; 85027; 86780; 93005; 93010